=== PATIENT | female | born 1980 | race Caucasian/White ===

== ENCOUNTER 2020-01-04 07:46 | Emergency (ER) | payer OTHER, SELFPAY ==
--- NOTE | ~2020-01-04 | XR_ITS ---
EXAMINATION: XR chest 2V 01/04/2020 08:16 INDICATION: Chest pain, shortness of breath and tachycardia PROCEDURE: 2 view chest COMPARISON: 11/29/2013 FINDINGS: The lungs are clear. The cardiomediastinal silhouette is within normal limits. There are no pleural effusions. There is no pneumothorax suspected. IMPRESSION: 1: NO ACUTE CARDIOPULMONARY DISEASE. Reviewed, dictated and finalized at location A.
--- NOTE | 2020-01-04 07:49 | ECG_ITS ---
Measurements Intervals [place] Rate: 93 P: 39 CT: 133 QRS: 25 QRSD: 91 T: 38 QT: 339 QTc: 424 Interpretive Statements SINUS RHYTHM NORMAL ECG Electronically Signed On 01-04-2020 8:51:45 CDT by Erik Rosa D.O.
[2020-01-04] MEDS: ASPIRIN 81 MG CHEWABLE TABLET 324 MG PO (08:04)
[2020-01-04 08:24] LABS: Basophils Percent Auto 0.5 % (0.2-1.2); Eosinophils Absolute Auto 0.3 K/mm3 (0-0.3); Eosinophils Percent Auto 3.5 % (0-4.4); Hematocrit 40.9 % (37.0-47.0); Hemoglobin 13.5 g/dL (12.0-15.0); Immature Granulocyte Absolute 0.03 K/mm3 (0.00-0.031); Immature Granulocyte Percent A 0.3 % (0-0.5); Lymphocytes Absolute Auto 1.72 K/mm3 (0.9-3.2); Lymphocytes Percent Auto 19.6 % (18.3-44.2); Mean Corpuscular Hemoglobin 27.5 pg (26-34); Mean Corpuscular Volume 83.3 fl (80-100); Monocytes Absolute Auto 0.5 K/mm3 (0.1-0.6); Monocytes Percent Auto 6.1 % (2.6-8.5); Neutrophils Absolute Auto 6.2 K/mm3 (1.3-6.7); Platelet Count Result 318 k/mm3 (150-375); Red Blood Count 4.91 M/mm3 (4.2-5.4); Red Cell Distribution Width 13.8 % (11.5-14.5); White Blood Count 8.8 K/mm3 (4.5-10.0)
[2020-01-04 08:31] VITALS: BP 113/67; PULSE 94; RESP 18; O2SAT 96
[2020-01-04 08:35] LABS: Anion Gap 10 mmol/L (8-16); Blood Urea Nitrogen 10 mg/dL (7-17); Calcium 9.1 mg/dL (8.4-10.2); Carbon Dioxide 30 mmol/L (22-30); Chloride 99 mmol/L (98-107); Estimated CRCL calculation 157 ml/min; Estimated Glomerular Filt Rate > 60; Glucose 150 mg/dL (65-105); Potassium 3.9 mmol/L (3.4-5.0); Sodium 139 mmol/L (137-145)
[2020-01-04 08:39] LABS: D Dimer 0.29 ug/mL (<0.48)
[2020-01-04 08:41] LABS: Partial Thromboplastin Time 29.9 SECONDS (22.3-36.8); Prothrombin Time 13.3 Seconds (11.1-14.7)
[2020-01-04 08:46] LABS: Troponin I < 0.012 ng/mL (0.000-0.034)
[2020-01-04 09:25] VITALS: BP 102/66; PULSE 92; RESP 18; O2SAT 97
--- NOTE | 2020-01-04 09:40 | ED.CHESTPAIN ---
HPI - Chest Pain General Chief Complaint: Chest Pain Stated Complaint: Chest Pain x two weeks Time Seen by Provider: 01/04/20 07:52 Source: patient Mode of arrival: ambulatory Limitations: no limitations History of Present Illness HPI narrative: 39-year-old with a history of hypertension, diabetes here with complaints of palpitation on and off for approximately 1 month however last night she states that she had fluttering sensation in the mid chest associated with some pain and discomfort which also radiated to her left biceps. She also complains of chest pain with deep breathing. No history of cough or shortness of breath. She states that she has been working long hours. No history of COVID exposure. complaint: chest pain Onset (ago): week(s) (4) Timing of current episode: episodic Prior episodes: No Pain location: parasternal Pain radiation: left arm Severity: mild Quality: tightness and aching Risk Factors Coronary artery disease risk factors: diabetes and hypertension Related Data On Oral Contraceptives: No Home Medications Medication Instructions Recorded Confirmed clonazepam 01/04/20 hydrocodone-acetaminophen tablet 01/04/20 lisinopril 01/04/20 metformin mg 01/04/20 Allergies Allergy/AdvReac Type Severity Reaction Status Date / Time amoxicillin Allergy Intermediate Swelling Verified 01/04/20 07:53 clavulanic acid Allergy Intermediate Swelling Verified 01/04/20 07:53 Review of Systems Review of Systems: All systems reviewed & are unremarkable except as noted in HPI and below Constitutional: Constitutional: Reports no additional constitutional complaints Eyes: Eyes: Reports no additional eye complaints ENT: Reports system reviewed and no additional complaints, except as documented Cardiovascular: Cardiovascular: Reports no additional cardiovascular complaints Respiratory: Respiratory: Reports no additional respiratory complaints Musculoskeletal: Musculoskeletal: Reports no additional musculoskeletal complaints Integumentary/Breasts: Skin/Breast: Reports system reviewed and no additional complaints, except as docu Neurologic: Reports system reviewed and no additional complaints, except as documented Psychiatric: Psychiatric: Reports no additional psychiatric complaints PMFSH Social History Social History Gender identity (if verbalized by the patient): Female Exam Narrative: Exam Narrative: GENERAL: Well-appearing, obese, and in no acute distress. HEAD: Normocephalic, atraumatic. EYES: PERRLA and EOMI. ENT: Nares clear, no rhinorrhea or epistaxis. Mucous membranes moist. NECK: Supple. CHEST: Clear to auscultation. No respiratory distress. HEART: Regular rate and rhythm. No murmur heard. Normal peripheral pulses. ABDOMEN: Soft, nontender, nondistended, normal active bowel sounds. EXTREMITIES: Normal range of motion. No edema. SKIN: Warm, dry, no rash. NEURO: No focal deficits. Alert and oriented x3. PSYCH: Normal mood and affect. Course Course Emergency Course: Patient here in the ER had no chest pain or palpitation. I discussed her EKG and chest x-ray findings with the patient. Pain at this time is atypical advised her to follow-up with the primary doctor. Vital Signs Vital signs: Vital Signs Pulse Rate 94 01/04/20 08:31 Respiratory Rate 18 01/04/20 08:31 Blood Pressure 113/67 01/04/20 08:31 Pulse Oximetry 96 01/04/20 08:31 Pulse Rate 92 01/04/20 09:25 Respiratory Rate 18 01/04/20 09:25 Blood Pressure 102/66 01/04/20 09:25 Pulse Oximetry 97 01/04/20 09:25 MDM - Chest Pain Lab Data Result diagrams: 01/04/20 07:58 01/04/20 07:58 Labs: Lab Results 01/04/20 01/04/20 01/04/20 Range/Units 07:58 07:58 07:58 WBC 8.8 (4.5-10.0) K/mm3 RBC 4.91 (4.2-5.4) M/mm3 Hgb 13.5 (12.0-15.0) g/dL Hct 40.9 (37.0-47.0) % MCV 83.3 (80-100) fl M
[2020-01-04 09:56] VITALS: BP 106/70; PULSE 97; RESP 18; O2SAT 98
== END 2020-01-04 09:57 | disposition home or self-care (01) ==
PROVIDERS: Emergency Provider Family Medicine; PCP Emergency Medicine
DX: R00.2 Palpitations (principal); R07.89 Other chest pain; I10 Essential (primary) hypertension; E11.9 Type 2 diabetes mellitus without complications; Z79.84 Long term (current) use of oral hypoglycemic drugs
CPT/HCPCS: 36415; 71046; 80048; 84484; 85025; 85380; 85610; 85730; 93005; 99284; A9270

== ENCOUNTER 2020-06-07 23:51 | Emergency (ER) | payer OTHER, SELFPAY ==
--- NOTE | ~2020-06-07 | XR_ITS ---
EXAMINATION: XR chest 1V portable DATE: 06/08/2020 00:29 INDICATION: Chest pain. TECHNIQUE: A single frontal view of the chest was obtained. COMPARISON: Chest 2 views 01/04/2020 FINDINGS: Sensitivity is decreased by obesity. The chest demonstrates clear lungs without pneumonia, pleural effusion, or pneumothorax. The heart size is normal. IMPRESSION: 1. No acute cardiopulmonary disease. Reviewed, dictated and finalized at location A.
[2020-06-07 23:59] VITALS: PULSE 83
[2020-06-08] VITALS (11 sets, daily range): BP systolic 116–140; BP diastolic 60–88; PULSE 80–97; RESP 16; TEMP 36.6–37; O2SAT 96–100
--- NOTE | 2020-06-08 00:05 | ECG_ITS ---
Measurements Intervals [place] Rate: 94 P: 39 MD: 128 QRS: 25 QRSD: 86 T: 41 QT: 344 QTc: 431 Interpretive Statements SINUS RHYTHM MINIMAL Q WAVES- HIGH LATERAL LEADS BASELINE ARTIFACT- I, III, AVR, AVL BORDERLINE ECG Electronically Signed On 06-08-2020 7:11:36 CDT by Erik Rosa D.O.
[2020-06-08] MEDS: ASPIRIN 81 MG CHEWABLE TABLET 324 MG PO (00:25)
--- NOTE | 2020-06-08 00:26 | ED.GENADULT ---
HPI - General Adult General Chief complaint: Chest Pain Stated complaint: CP Time Seen by Provider: 06/07/20 23:56 History of Present Illness HPI narrative: Patient a 39-year-old female that presents the emergency department with chief complaint of chest pain. The patient reports that she started having a sharp pain in the left side of her chest that radiates up into her neck. Patient states that it is worse with inspiration and is improved with leaning forward. Patient states that the pain is a sharp type pain states that it is worsened with deep inspiration and also palpation in her chest. Patient reports she has history of hypertension Related Data Home Medications Medication Instructions Recorded Confirmed clonazepam 01/04/20 hydrocodone-acetaminophen tablet 01/04/20 lisinopril 01/04/20 metformin mg 01/04/20 Allergies Allergy/AdvReac Type Severity Reaction Status Date / Time amoxicillin Allergy Intermediate Swelling Verified 01/04/20 07:53 clavulanic acid Allergy Intermediate Swelling Verified 01/04/20 07:53 Review of Systems Review of Systems: Narrative: A 10 system review of systems was completed on the patient and is negative except for what is stated in the HPI. Nursing and ancillary documentation was reviewed. [facility] Social History Social History Gender identity (if verbalized by the patient): Female Comments Patient has past medical history significant for hypertension Social history the patient reports that she is a former smoker Exam Narrative: Exam Narrative: GENERAL: Well-appearing, well-nourished, and in no acute distress. HEAD: Normocephalic, atraumatic. EYES: PERRLA and EOMI. ENT: Nares clear, no rhinorrhea or epistaxis. Mucous membranes moist. NECK: Supple. CHEST: Clear to auscultation. No respiratory distress. Chest wall is tender to palpation and reproduces the pain HEART: Regular rate and rhythm. No murmur heard. Normal peripheral pulses. ABDOMEN: Soft, nontender, nondistended, normal active bowel sounds. EXTREMITIES: Normal range of motion. No edema. SKIN: Warm, dry, no rash. NEURO: No focal deficits. Alert and oriented x3. PSYCH: Normal mood and affect. Course Course Emergency Course: EKG is sinus rhythm rate of [address] elevation or ST depression Vital Signs Vital signs: Vital Signs Pulse Rate 83 06/07/20 23:59 Temperature 36.6 C 06/08/20 00:01 Pulse Rate 96 06/08/20 01:16 Respiratory Rate 16 06/08/20 00:01 Blood Pressure 120/86 06/08/20 01:15 Pulse Oximetry 97 06/08/20 01:16 Medical Decision Making Vital Signs Vital Signs: Vital Signs Pulse Rate 83 06/07/20 23:59 Temperature 36.6 C 06/08/20 00:01 Pulse Rate 96 06/08/20 01:16 Respiratory Rate 16 06/08/20 00:01 Blood Pressure 120/86 06/08/20 01:15 Pulse Oximetry 97 06/08/20 01:16 Lab Data Result diagrams: 06/08/20 00:24 06/08/20 00:24 Labs: Lab Results 06/08/20 06/08/20 06/08/20 Range/Units 00:23 00:24 00:24 WBC 10.5 H (4.5-10.0) K/mm3 RBC 4.74 (4.2-5.4) M/mm3 Hgb 12.9 (12.0-15.0) g/dL Hct 38.5 (37.0-47.0) % MCV 81.2 (80-100) fl MCH 27.2 (26-34) pg MCHC 33.5 (32-36) g/dl RDW 14.0 (11.5-14.5) % Plt Count 322 (150-375) k/mm3 MPV 9.1 (7.4-10.4) fl Immature Gran % (Auto) 0.4 (0-0.5) % Neut % (Auto) 61.8 (45.5-73.1) % Lymph % (Auto) 27.3 (18.3-44.2) % [place] % (Auto) 7.3 (2.6-8.5) % Eos % (Auto) 2.8 (0-4.4) % Baso % (Auto) 0.4 (0.2-1.2) % Lymph # (Auto) 2.87 (0.9-3.2) K/mm3 [place] # (Auto) 0.8 H (0.1-0.6) K/mm3 Eos # (Auto) 0.3 (0-0.3) K/mm3 Baso # (Auto) 0.0 (0.0-0.1) K/mm3 Abs Immat Gran (auto) 0.04 H (0.00-0.031) K/mm3 Absolute Neuts (auto) 6.5 (1.3-6.7) K/mm3 Absolute Nucleated RBC 0.0 (0.0-0.012) K/mm3 Nucleated RBC % 0.0 (0.0-0.2) % D-Dimer
[2020-06-08 00:39] LABS: Basophils Percent Auto 0.4 % (0.2-1.2); Eosinophils Absolute Auto 0.3 K/mm3 (0-0.3); Eosinophils Percent Auto 2.8 % (0-4.4); Hematocrit 38.5 % (37.0-47.0); Hemoglobin 12.9 g/dL (12.0-15.0); Immature Granulocyte Absolute 0.04 K/mm3 (0.00-0.031); Immature Granulocyte Percent A 0.4 % (0-0.5); Lymphocytes Absolute Auto 2.87 K/mm3 (0.9-3.2); Lymphocytes Percent Auto 27.3 % (18.3-44.2); Mean Corpuscular HGB Conc 33.5 g/dl (32-36); Mean Corpuscular Hemoglobin 27.2 pg (26-34); Mean Corpuscular Volume 81.2 fl (80-100); Mean Platelet Volume 9.1 fl (7.4-10.4); Monocytes Absolute Auto 0.8 K/mm3 (0.1-0.6); Monocytes Percent Auto 7.3 % (2.6-8.5); Neutrophils Absolute Auto 6.5 K/mm3 (1.3-6.7); Neutrophils Percent Auto 61.8 % (45.5-73.1); Platelet Count Result 322 k/mm3 (150-375); Red Blood Count 4.74 M/mm3 (4.2-5.4); White Blood Count 10.5 K/mm3 (4.5-10.0)
[2020-06-08 00:52] LABS: Alanine Aminotransferase 20 U/L (4-35); Albumin Level 4.3 g/dL (3.5-5.1); Alkaline Phosphatase 62 U/L (38-126); Anion Gap 6 mmol/L (8-16); Aspartate Amino Transferase 21 U/L (14-36); Bilirubin,Total 0.4 mg/dL (0.2-1.3); Blood Urea Nitrogen 14 mg/dL (7-17); Calcium 9.2 mg/dL (8.4-10.2); Carbon Dioxide 30 mmol/L (22-30); Chloride 100 mmol/L (98-107); Estimated CRCL calculation 188 ml/min; Estimated Glomerular Filt Rate > 60; Glucose 109 mg/dL (65-105); Potassium 4.1 mmol/L (3.4-5.0); Sodium 136 mmol/L (137-145)
[2020-06-08 01:05] LABS: NT Pro B Type Natriuretic Pept 34 PG/ML (5-100); Troponin I < 0.012 ng/mL (0.000-0.034)
[2020-06-08 01:59] LABS: D Dimer 0.32 ug/mL (<0.48)
[2020-06-08 02:07] LABS: Add Urine Microscopic? YES; Appearance Urine Cloudy (Clear); Bacteria Urine Trace /hpf; Bilirubin Urine Negative (Negative); Blood Urine Negative (Negative); Color Urine Yellow (Yellow); Glucose Urine UA 1+ mg/dL (Negative); Ketones Urine Negative (Negative); Leukocyte Esterase Ur Negative LEU/UL (Negative); Mucus Urine Moderate /lpf; Nitrate Urine Negative (Negative); Protein Urine 1+ mg/dL (Negative); RBC Urine 0-2 /hpf (0-2); Specific Grav Ur 1.026 (1.001-1.035); Squamous Epithelial Cell Urine Moderate /hpf (Few); Urobilinogen Urine Negative mg/dL (<2.0); WBC Urine 0-3 /hpf
== END 2020-06-08 02:18 | disposition home or self-care (01) ==
PROVIDERS: Emergency Provider Emergency Medicine; PCP Emergency Medicine
DX: R07.89 Other chest pain (principal); I10 Essential (primary) hypertension; Z87.891 Personal history of nicotine dependence; R94.31 Abnormal electrocardiogram [ECG] [EKG]
CPT/HCPCS: 36415; 71045; 80053; 81001; 83880; 84484; 85025; 85380; 93005; 99284; A9270

== ENCOUNTER 2020-10-22 01:52 | Day surgery (SDC) | payer OTHER, SELFPAY ==
[2020-10-06 14:45] VITALS: BMI 46.1
[2020-10-22 06:46] VITALS: BP 132/85; PULSE 83; RESP 18; TEMP 36.1; O2SAT 99
[2020-10-22] MEDS: LACTATED RINGERS 1,000 ML 150 ML IV CONT (06:52)
[2020-10-22 07:01] LABS: Glucose Point of Care 93 mg/dl (65-105)
--- NOTE | 2020-10-22 07:53 | PM.HPGS ---
History of Present Illness History of Present Illness Consent: Risks, benefits, and alternatives have been discussed and questions answered. Patient agrees to proceed with procedure. Chief complaint: Rectal bleeding, GERD Narrative: Lor Tabares is a 40 year old female with choking sensation (not longer using omeprazole) and also alternating constipation and diarrhea, never had scopes Review of Systems Constitutional: Constitutional: Denies headache(s) and Denies weakness Eyes: Eyes: Denies blurry vision ENT: Reports Normal hearing present, Denies headache(s) and Denies neck pain Cardiovascular: Cardiovascular: Denies chest pain and Denies dyspnea Respiratory: Respiratory: Denies dyspnea Gastrointestinal: Gastrointestinal: Reports no additional gastrointestinal complaints Genitourinary: Genitourinary: Denies dysuria Musculoskeletal: Musculoskeletal: Denies neck pain Integumentary/Breasts: Skin/Breast: Denies dry skin Neurologic: Reports Normal hearing present, Denies headache(s) and Denies weakness Psychiatric: Psychiatric: Denies anxiety Endocrine: Endocrine: Denies change in body appearance Hematologic/Lymphatic: Hematologic/Lymphatic: Denies easy bleeding Allergic/Immunologic: Allergic/Immunologic: Denies urticaria PMFSH Past Medical History Medical History (Updated 10/22/20 @ 07:54 by Jc Owens MD) Alternating constipation and diarrhea Diabetes mellitus GERD (gastroesophageal reflux disease) HTN (hypertension), benign IBS (irritable bowel syndrome) Social History Social History Smoking packs per day: 1 Smoking cigarettes per day: 20.0 Years smoked: 10 Smoking pack-years: 10.00 Smoking status: Former smoker Tobacco type: cigarettes Smoking end date: 03/26/16 Alcohol intake: current Substance use: never Substance use type: does not use Living arrangements: with family Gender identity (if verbalized by the patient): Female Spiritual care concerns: No Meds Home Medications and Allergies Home Medications Medication Instructions Recorded Confirmed Type clonazepam 1 mg PO BID PRN 10/06/20 10/06/20 History lisinopril 20 mg PO DAILY 10/06/20 10/06/20 History metformin 850 mg PO DAILY 10/06/20 10/06/20 History Allergies Allergy/AdvReac Type Severity Reaction Status Date / Time amoxicillin Allergy Intermediate Swelling Verified 10/22/20 06:45 clavulanic acid Allergy Intermediate Swelling Verified 10/22/20 06:45 Vital Signs Vital Signs - 24 hr 10/22/20 06:46 Temperature 97 F L Pulse Rate 83 Respiratory Rate 18 Blood Pressure 132/85 Pulse Oximetry 99 Exam Const: General: comfortable and no acute distress Nutritional Appearance: obese HENMT: General nose exam: Normal nares present Eyes: General: appearance normal, both eyes and all related structures Neck: Neck: no JVD Resp: Auscultation: clear to auscultation bilaterally Cardio: Rate: regular rate Rhythm: regular rhythm GI: Inspection: non-distended GI Palp: Yes Soft to palpation Skin: General skin exam: normal color Neuro: General: gait normal Speech: normal speech Extrem: General: normal to inspection Psych: Mental Status: mental status grossly normal Assessment and Plan Assessment and plan (1) IBS (irritable bowel syndrome): Code(s): K58.9 - Irritable bowel syndrome without diarrhea Status: Acute (2) GERD (gastroesophageal reflux disease): Code(s): K21.9 - Gastro-esophageal reflux disease without esophagitis Status: Inactive Assessment and Plan: egd with bx (3) Alternating constipation and diarrhea: Code(s): R19.8 - Other specified symptoms and signs involving the digestive system and abdomen Status: Acute Assessment and Plan: colonoscopy with random bx, possible ibs
--- NOTE | 2020-10-22 07:53 | WPDANESEPPF ---
Anes - Initial Pre Proc Eval Procedure: Operation Date: 10/22/20 08:00 Proposed Procedures p Esophagogastroduodenoscopy & Colonoscopy - Jc Owens MD Date/Time: 10/22/20 07:53 Surgeon: Jc Owens MD Pre Op Diagnosis: Rectal bleeding, GERD Patient Data Age: 40 Gender: F Height: 1.6 m Weight: 123.6 kg Last Vital Signs Temp 97 F L 10/22/20 06:46 Pulse 83 10/22/20 06:46 Resp 18 10/22/20 06:46 BP 132/85 10/22/20 06:46 Pulse Ox 99 10/22/20 06:46 Allergies Allergy/AdvReac Type Severity Reaction Status Date / Time amoxicillin Allergy Intermediate Swelling Verified 10/22/20 06:45 clavulanic acid Allergy Intermediate Swelling Verified 10/22/20 06:45 Home Medications Medication Instructions Recorded Confirmed Type clonazepam 1 mg PO BID PRN 10/06/20 10/06/20 History lisinopril 20 mg PO DAILY 10/06/20 10/06/20 History metformin 850 mg PO DAILY 10/06/20 10/06/20 History Laboratory Tests 10/22/20 06:52 POC Capillary Glucose 93 mg/dl mg/dl (65-105) Patient hx anesthesia problems: none Family hx anesthesia problems: none [facility] Past Medical History Medical History (Updated 10/22/20 @ 07:53 by Jc Owens MD) Diabetes mellitus GERD (gastroesophageal reflux disease) HTN (hypertension), benign IBS (irritable bowel syndrome) Social History Social History Smoking packs per day: 1 Smoking cigarettes per day: 20.0 Years smoked: 10 Smoking pack-years: 10.00 Smoking status: Former smoker Tobacco type: cigarettes Smoking end date: 03/26/16 Alcohol intake: current Substance use: never Substance use type: does not use Living arrangements: with family Gender identity (if verbalized by the patient): Female Spiritual care concerns: No Anes - Eval Final PreProcedure Day of Procedure 10/22/20 07:53 Patient weight: morbidly obese Heart: regular rate and rhythm Lungs: clear to auscultation Airway: Mallampati scale class III Last oral intake: >/= 8 hours ASA classification: IV Emergent: no Anesthetic plan: proceed Anesthesia type and monitoring: general GIVS and standard monitoring Informed Consent: The patient's anesthetic plan and its attendant risks and benefits were discussed with the patient/family/POA. Questions were solicited and answers provided to the satisfaction of the patient/family/POA.
[2020-10-22] MEDS: BENZOCAINE (*SP) 60 ML SPRAY CAN (HURRICAINE) 1 SPRAY MUCOUS MEM (08:00)
[2020-10-22 08:26] VITALS: BP 114/64; PULSE 89; RESP 16; O2SAT 100
[2020-10-22 08:36] VITALS: BP 111/68; PULSE 78; RESP 21; O2SAT 100
[2020-10-22 08:46] VITALS: BP 112/63; PULSE 75; RESP 19; O2SAT 100
== END 2020-10-22 08:54 | disposition home or self-care (01) ==
PROVIDERS: PCP Emergency Medicine; Visit Provider Internal Medicine Gastroenterology
PROC: 0DJ08ZZ Inspection of Upper Intestinal Tract, Via Natural or Artificial Opening Endoscopic (ICD-10-PCS; CPT 43235; principal; 2020-10-22 08:00)
DX: Z12.11 Encounter for screening for malignant neoplasm of colon (principal); R19.7 Diarrhea, unspecified; K59.00 Constipation, unspecified; K64.8 Other hemorrhoids; K29.50 Unspecified chronic gastritis without bleeding; K29.80 Duodenitis without bleeding; K21.9 Gastro-esophageal reflux disease without esophagitis; R13.10 Dysphagia, unspecified; I10 Essential (primary) hypertension; E11.9 Type 2 diabetes mellitus without complications; Z87.891 Personal history of nicotine dependence; E66.01 Morbid (severe) obesity due to excess calories; Z68.42 Body mass index [BMI] 45.0-49.9, adult
CPT/HCPCS: 45380; 43239; 82948; 88305; J2704; J7120

== ENCOUNTER 2022-01-07 07:37 | Outpatient (CLI) | payer OTHER, SELFPAY ==
--- NOTE | ~2022-01-07 | MM_ITS ---
EXAMINATION: MM screening [facility] BI w renan HISTORY: Screening TECHNIQUE: Craniocaudal and mediolateral oblique 3-D tomosynthesis images were obtained and synthetic 2-D images were generated. CAD analysis was submitted and interpreted. COMPARISON: No prior mammogram is available for comparison at this institution. BREAST PARENCHYMAL COMPOSITION: There are scattered areas of fibroglandular density. FINDINGS: There is a mass in the upper outer quadrant of the right breast, middle third. There is a s econd radiolucent mass in the lower outer quadrant posteriorly. There are no suspicious masses, calci fications or architectural distortion in the left breast to suggest malignancy. IMPRESSION: 1. Right breast masses as described above. 2. Additional mammographic views and possible breast ultrasound are recommended. BI-RADS Category 0: Incomplete: Needs additional imaging evaluation. Reviewed, dictated and finalized at location A. IMPRESSION: 1. Right breast masses as described above. 2. Additional mammographic views and possible breast ultrasound are recommended . BI-RADS Category 0: Incomplete: Needs additional imaging evaluation.
== END 2022-01-07 07:38 | disposition home or self-care (01) ==
PROVIDERS: PCP Emergency Medicine; Visit Provider Emergency Medicine
DX: Z12.31 Encounter for screening mammogram for malignant neoplasm of breast (principal); R92.8 Other abnormal and inconclusive findings on diagnostic imaging of breast
CPT/HCPCS: 77063; 77067

== ENCOUNTER 2022-01-27 12:58 | Outpatient (CLI) | payer OTHER, SELFPAY ==
--- NOTE | ~2022-01-27 | MMUS_ITS ---
EXAMINATION: MM diagnostic [facility] RT w renan, US breast RT complete HISTORY: Follow-up right breast mass TECHNIQUE: Additional 3-D tomosynthesis images of the right breast were performed and synthetic 2-D i mages were generated. CAD analysis was submitted and interpreted. High resolution complete right perri st ultrasound was performed. COMPARISON: 01/07/2022 BREAST PARENCHYMAL COMPOSITION: Breast composed of scattered areas of fibroglandular density FINDINGS: MAMMOGRAPHIC FINDINGS: There is a benign-appearing intramammary lymph node in the mid outer aspect of the right breast. No s uspicious masses, calcifications or architectural distortion to suggest malignancy. The small posteri or asymmetry in the right breast located posteriorly on prior screening mammogram is not visualized o n the current study. ULTRASOUND: Complete right breast US of all 4 quadrants of the breasts and retroareolar region was reviewed. Norm al heterogeneous echotexture without focal solid or cystic mass. IMPRESSION: 1. No evidence for malignancy in the right breast. 2. Routine yearly screening mammogram and regular clinical breast examination are recommended. BI-RADS Category 1: Negative Reviewed, dictated and finalized at location A. IMPRESSION: 1. No evidence for malignancy in the right breast. 2. Routine yearly screening mammogram and regular clinical breast examination a re recommended. BI-RADS Category 1: Negative
== END 2022-01-27 12:59 | disposition home or self-care (01) ==
LOC: ANHIMG 12:59
PROVIDERS: PCP Emergency Medicine; Visit Provider Emergency Medicine
DX: N63.10 Unspecified lump in the right breast, unspecified quadrant (principal)
CPT/HCPCS: 76641; 77061; 77065; G0279

== ENCOUNTER 2023-06-28 17:00 | Outpatient (CLI) | payer OTHER, SELFPAY ==
--- NOTE | ~2023-06-28 | MM_ITS ---
EXAMINATION: MM screening [facility] BI w renan HISTORY: Screening TECHNIQUE: Craniocaudal and mediolateral oblique 3-D tomosynthesis images were obtained and synthetic 2-D images were generated. CAD analysis was submitted and interpreted. COMPARISON: Comparison to multiple prior studies sequentially, with oldest reviewed study dated 12/24. BREAST PARENCHYMAL COMPOSITION: Not dense: There are scattered areas of fibroglandular density. FINDINGS: Stable benign-appearing right breast masses. There is no evidence of suspicious mass, calci fication, or architectural distortion to suggest malignancy in either breast. There has been no suspi cious interval change. IMPRESSION: 1. No mammographic evidence of malignancy. 2. Recommend routine screening mammography in one year. BI-RADS Category 1: Negative Reviewed, dictated and finalized at location A.
== END 2023-06-28 17:01 | disposition home or self-care (01) ==
PROVIDERS: PCP Emergency Medicine; Visit Provider Emergency Medicine
DX: Z12.31 Encounter for screening mammogram for malignant neoplasm of breast (principal)
CPT/HCPCS: 77063; 77067

== ENCOUNTER 2024-10-04 07:01 | Outpatient (CLI) | payer OTHER, SELFPAY ==
--- NOTE | ~2024-10-04 | MM_ITS ---
EXAMINATION: MM screening [facility] w [facility] HISTORY: Screening TECHNIQUE: Craniocaudal and mediolateral oblique 3-D tomosynthesis images were obtained and synthetic 2-D images were generated. CAD analysis was submitted and interpreted. COMPARISON: Comparison to multiple prior studies sequentially, with oldest reviewed study dated 12/24. BREAST PARENCHYMAL COMPOSITION: Not dense: There are scattered areas of fibroglandular density. FINDINGS: There is no evidence of suspicious mass, calcification, or architectural distortion to sugg est malignancy in either breast. There has been no suspicious interval change. IMPRESSION: 1. No mammographic evidence of malignancy. 2. Recommend routine screening mammography in one year. BI-RADS Category 1: Negative Reviewed, dictated and finalized at location []
--- OUTSIDE RECORDS SUMMARY | 2024-10-04 07:32 | XMS_ITS | Clinical Summary ---
Author Organization [facility] [employer] Address [address] [place] [address] Care Team Providers Care Furniture Assembler And Installer Name Role Phone Joe Finn MD Primary Care Provider [phone] Source Comments [facility] [employer],non-owned Affiliates and Associated Physician Practices is amultiple site organization consisting of ambulatory clinics and hospital sitesin [place], [place], [place] and [place]. This disclosure is being madepursuant to the Care Everywhere program and may not contain all information available regarding this patient. Last updated 17.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 Gender Identity Not on file Sexual Orientation Not on file Plan of Treatment Health Maintenance Due Date Last Done Comments LIPID TESTING 1981 MAMMOGRAM 1981 HIV SCREENING 1996 HEPATITIS C SCREENING 07/27/1999 DTAP/TDAP/TD VACCINES (1 - Tdap) 2000 HEPATITIS B VACCINE (1 of 3 - 19+ 3-dose series) 2000 HPV VACCINE (1 - 3-dose SCDM series) 2008 COVID-19 VACCINE ( - 2023-2 5 season) 2023 DEPRESSION SCREENING 03/26/2024 INFLUENZA VACCINE (#1) 2024 ZOSTER VACCINE (1 of 2) 08/01/2031 HIB VACCINE Aged Out No longer eligi ble based on patient's age to complete this topic MENINGOCOCCAL (Group B) VACC INE SHARED DECISION-MAKING Aged Out No longer eligibl e based on patient's age to complete this topic MENINGOCOCCAL GROUPS A/C/Y/W VACCINE Aged Out No longer eligible b ased on patient's age to complete this topic PNEUMOCOCCAL VACCINE Aged Out No long er eligible based on patient's age to complete this topic Insurance [facility] Care Teams Furniture Assembler And Installer Relationship Specialty Start Date End Date Joe Finn MD [address] [facility] [address] [place] [address] PCP - General 05/17/13
--- OUTSIDE RECORDS SUMMARY | 2024-10-04 07:32 | XMS_ITS | Continuity of Care Document ---
Author Organization [facility] Address [address] [place] [address] [place] [address] Phone Care Team Providers Care Manager Surgery Name Role Phone Joe Finn MD Unavailable Unavailable Allergies, Adverse Reactions, Alerts Substance Reaction Status Criticality No Known Allergies Active No Inform ation Medications Medication Instructions Dosage Effective Dates (start - stop) Status Comments hydrocodone 10 mg-acetaminophen 325 mg tablet take 1 by Oral route 4 times every day as needed for G89.4 1 - Active PRN for pain, avoid driving or operate machines phentermine 37.5 mg tablet take 1 tablet by oral route every day before breakfast 37.5 MG - Active Procedures Procedure Date OFFICE/OUTPATIENT VISIT, EST OFFICE/OUTPATIENT VISIT, EST OFFICE/OUTPATIENT VISIT, EST PREV VISIT, EST, AGE 40-64 OFFICE/OUTPATIENT VISIT, EST OFFICE/OUTPATIENT VISIT, EST OFFICE/OUTPATIENT VISIT, EST OFFICE/OUTPATIENT VISIT, EST OFFICE/OUTPATIENT VISIT, EST OFFICE/OUTPATIENT VISIT, EST OFFICE/OUTPATIENT VISIT, EST OFFICE/OUTPATIENT VISIT, EST OFFICE/OUTPATIENT VISIT, EST OFFICE/OUTPATIENT VISIT, EST OFFICE/OUTPATIENT VISIT, EST OFFICE/OUTPATIENT VISIT, EST OFFICE/OUTPATIENT VISIT, EST OFFICE/OUTPATIENT VISIT, EST OFFICE/OUTPATIENT VISIT, EST OFFICE/OUTPATIENT VISIT, EST OFFICE/OUTPATIENT VISIT, EST OFFICE/OUTPATIENT VISIT, EST OFFICE/OUTPATIENT VISIT, EST OFFICE/OUTPATIENT VISIT, EST OFFICE/OUTPATIENT VISIT, EST OFFICE/OUTPATIENT VISIT, EST OFFICE/OUTPATIENT VISIT, EST OFFICE/OUTPATIENT VISIT, EST OFFICE/OUTPATIENT VISIT, EST PREV VISIT, EST, AGE 40-64 OFFICE/OUTPATIENT VISIT, EST OFFICE/OUTPATIENT VISIT, EST OFFICE/OUTPATIENT VISIT, EST OFFICE/OUTPATIENT VISIT, EST OFFICE/OUTPATIENT VISIT, EST OFFICE/OUTPATIENT VISIT, EST OFFICE/OUTPATIENT VISIT, EST OFFICE/OUTPATIENT VISIT, EST OFFICE/OUTPATIENT VISIT, EST PREV VISIT, EST, AGE 18-39 OFFICE/OUTPATIENT VISIT, EST OFFICE/OUTPATIENT VISIT, EST OFFICE/OUTPATIENT VISIT, EST OFFICE/OUTPATIENT VISIT, EST OFFICE/OUTPATIENT VISIT, EST PREV VISIT, EST, AGE 18-39 OFFICE/OUTPATIENT VISIT, EST OFFICE/OUTPATIENT VISIT, EST OFFICE/OUTPATIENT VISIT, EST OFFICE/OUTPATIENT VISIT, EST OFFICE/OUTPATIENT VISIT, EST OFFICE/OUTPATIENT VISIT, EST PREV VISIT, EST, AGE 18-39 OFFICE/OUTPATIENT VISIT, EST OFFICE/OUTPATIENT VISIT, EST OFFICE/OUTPATIENT VISIT, EST OFFICE/OUTPATIENT VISIT, EST OFFICE/OUTPATIENT VISIT, EST PREV VISIT, EST, AGE 18-39 OFFICE/OUTPATIENT VISIT, EST OFFICE/OUTPATIENT VISIT, EST OFFICE/OUTPATIENT VISIT, EST OFFICE/OUTPATIENT VISIT, EST OFFICE/OUTPATIENT VISIT, EST OFFICE/OUTPATIENT VISIT, EST OFFICE/OUTPATIENT VISIT, EST PREV VISIT, EST, AGE 18-39 OFFICE/OUTPATIENT VISIT, EST OFFICE/OUTPATIENT VISIT, EST OFFICE/OUTPATIENT VISIT, EST OFFICE/OUTPATIENT VISIT, EST PREV VISIT, EST, AGE 18-39 OFFICE/OUTPATIENT VISIT, EST OFFICE/OUTPATIENT VISIT, EST OFFICE/OUTPATIENT VISIT, EST OFFICE/OUTPATIENT VISIT, EST OFFICE/OUTPATIENT VISIT, EST PREV VISIT, EST, AGE 18-39 OFFICE/OUTPATIENT VISIT, EST OFFICE/OUTPATIENT VISIT, EST OFFICE/OUTPATIENT VISIT, EST OFFICE/OUTPATIENT VISIT, EST OFFICE/OUTPATIENT VISIT, EST OFFICE/OUTPATIENT VISIT, EST OFFICE/OUTPATIENT VISIT, EST OFFICE/OUTPATIENT VISIT, EST -2013 PREV VISIT, EST, AGE 18-39 OFFICE/OUTPATIENT VISIT, EST -2012 OFFICE/OUTPATIENT VISIT, EST OFFICE/OUTPATIENT VISIT, EST OFFICE/OUTPATIENT VISIT, EST OFFICE/OUTPATIENT VISIT, EST OFFICE/OUTPATIENT VISIT, EST OFFICE/OUTPATIENT VISIT, EST OFFICE/OUTPATIENT VISIT, EST OFFICE/OUTPATIENT VISIT, EST OFFICE/OUTPATIENT VISIT, EST OFFICE/OUTPATIENT VISIT, EST OFFICE/OUTPATIENT VISIT, EST OFFICE/OUTPATIENT VISIT, EST PREV VISIT, EST, AGE 18-39 Advance Directives Directive Yes / No Effective Date File Name No Information Encounters Encounter Description Practice Location Reason(s) For Visit Diagnoses Date Provider Providers Copied on Encounter OFFICE/OUTPA TIENT VISIT, EST [facility], [address], [place], [place], [address], [place] tel:[phone] [facility] pain (chief complaint) weight gain1 (chief complaint) breast1 (chief complaint) Chronic pain syndromeAbnormal weight gainEncounter for oth screening for malignant neoplasm of breast 5 Aakash Jung [address], [place], [place], [address] , [place]. tel:[phone] OFFICE/OUTPA TIENT VISIT, [facility], [address], [place], [place], [address], [place] tel:[phone] [facility] pain (chief complaint) Chronic pain syndrome 5 Aakash Diaz. [address], [place], [place], [address] , [place]. [phone] OFFICE/OUTPA TIENT VISIT, EST [facility], [address], [place], [place], [address], [place] tel:[phone] [facility] pain (chief complaint) weight loss1 (chief complaint) anxiety1 (chief complaint) Chronic pain syndromeAbnormal weight lossGeneralized Anxiety Disorder 5 Aakash Jung [address], [place], [place], [address] , [place]. tel:[phone] PREV VISIT, EST, AGE 40-64 [facility], [address], [place], [place], [address], [place] tel:[phone] [facility] physical (chief complaint) Encounter for general adult medical examination without abnormal findings 5 Aakash Diaz. [address], [place], [place], [address] , [place]. tel:[phone] OFFICE/OUTPA TIENT VISIT, [facility], [address], [place], [place], [address], [place] tel:[phone] [facility] pain (chief complaint) weight gain1 (chief complaint) Chronic pain syndromeAbnormal weight gain 5 Aakash Jung [address], [place], [place], [address] , [place]. tel:[phone] OFFICE/OUTPA TIENT VISIT, [facility], [address], [place], [place], [address], [place] tel:[phone] [facility] pain (chief complaint) DM (chief complaint) folate (chief complaint) Chronic pain syndromeType 2 diabetes mellitus without complicationsAbnorm al weight lossMixed hyperlipidemiaFolat e deficiency 5 Aakash Jung [address], [place], [place], [address] , [place]. tel:[phone] OFFICE/OUTPA TIENT VISIT, [facility], [address] [place] [address], [place] tel:[phone] [facility] pain (chief complaint) weight gain1 (chief complaint) DM (chief complaint) Chronic pain syndromeAbnormal weight gainEncounter for oth screening for malignant neoplasm of breastType 2 diabetes mellitus without complications 4 Aakash Jung [address], [place], [place], [address] , [place]. tel:[phone] OFFICE/OUTPA TIENT VISIT, [facility], [address] [place] [address], [place] tel:[phone] [facility] back pain1 (chief complaint) weight loss1 (chief complaint) Chronic pain syndromeAbnormal weight loss 4 Aakash Jung [address], [place], [place], [address] , [place]. tel:[phone] OFFICE/OUTPA TIENT VISIT, [facility], [address], [place], [place], [address], [place] tel:[phone] [facility] pain (chief complaint) wight1 (chief complaint) Chronic pain syndromeAbnormal weight gain 3 0 4 Aakash Diaz. [address], [place], [place], [address] , [place]. tel:[phone] OFFICE/OUTPA TIENT VISIT, [facility], [address], [place], [place], [address], [place] [phone] [facility] weight loss1 (chief complaint) DM (chief complaint) pain (chief complaint) Abnormal weight lossChronic pain syndromeType 2 diabetes mellitus without complications 0 4 Aakash Diaz. [address], [place], [place], [address] , [place]. tel:[phone] OFFICE/OUTPA TIENT VISIT, [facility], [address], [place], [place], [address], [place] tel:[phone] [facility] pain (chief complaint) weight loss1 (chief complaint) Abnormal weight lossChronic pain syndrome Nov-0 4 Aakash Jung [address], [place], [place], [address] , [place]. tel:[phone] OFFICE/OUTPA TIENT VISIT, [facility], [address], [place], [place], [address], [place] tel:[phone] [facility] weight loss1 (chief complaint) pain (chief complaint) GI (chief complaint) GastroenteritisChro ayala pain syndromeAbnormal weight loss 4 Aakash Jung [address], [place], [place], [address] , [place]. tel:[phone] OFFICE/OUTPA TIENT VISIT, [facility], [address], [place], [place], [address], [place] tel:[phone] [facility] pain (chief complaint) DM (chief complaint) weight gain1 (chief complaint) Chronic pain syndromeType 2 diabetes mellitus without complicationsAbnorm al weight gain 0 4 Aakash Jung [address], [place], [place], [address] , [place]. tel:[phone] OFFICE/OUTPA TIENT VISIT, [facility], [address], [place], [place], [address], [place] tel:[phone] [facility] pain (chief complaint) DM (chief complaint) Chronic pain syndromeType 2 diabetes mellitus without complications Amish-0 4 Aakash Diaz. [address], [place], [place], [address] , [place]. tel:[phone] OFFICE/OUTPA TIENT VISIT, [facility], [address], [place], [place], [address], [place] tel:[phone] [facility] pain (chief complaint) DM (chief complaint) Chronic pain syndromeType 2 diabetes mellitus without complications July-0 4 Aakash Diaz. [address], [place], [place], [address] , [place]. tel:[phone] OFFICE/OUTPA TIENT VISIT, [facility], [address], [place], [place], [address], [place] tel:[phone] [facility] pain1 (chief complaint) Chronic pain syndromeEncntr screen mammogram for malignant neoplasm of breast Jun- 4 Aakash Diaz. [address], [place], [place], [address] , [place]. tel:[phone] OFFICE/OUTPA TIENT VISIT, [facility], [address], [place], [place], [address], [place] tel:[phone] [facility] pain1 (chief complaint) DM (chief complaint) Abnormal weight lossChronic pain syndrome May- 4 Aakash Diaz. [address], [place], [place], [address] , [place]. tel:[phone] OFFICE/OUTPA TIENT VISIT, [facility], [address], [place], [place], [address], [place] tel:[phone] [facility] pain (chief complaint) Chronic pain syndrome 0 4 Aakash Diaz. [address], [place], [place], [address] , [place]. tel:[phone] OFFICE/OUTPA TIENT VISIT, [facility], [address], [place], [place], [address], [place] tel:[phone] [facility] pain (chief complaint) weight gain1 (chief complaint) Abnormal weight gainChronic pain syndrome 4 Aakash Diaz. [address], [place], [place], [address] , [place]. [phone] OFFICE/OUTPA TIENT VISIT, [facility], [address], [place], [place], [address], [place] tel:[phone] [facility] weight1 (chief complaint) vaginal yeast1 (chief complaint) Abnormal weight lossAcute candidal vulvovaginitis 3 Aakash Diaz. [address], [place], [place], [address] , [place]. [phone] OFFICE/OUTPA TIENT VISIT, [facility], [address], [place], [place], [address], [place] tel:[phone] [facility] pain (chief complaint) HTN (chief complaint) mammo (chief complaint) Chronic pain syndromeEssential (primary) hypertensionLump in the right breast 3 Aakash Diaz. [address], [place], [place], [address] , [place]. [phone] OFFICE/OUTPA TIENT VISIT, [facility], [address], [place], [place], [address], [place] tel:[phone] [facility] pain (chief complaint) Chronic pain syndrome 3 Aakash Diaz. [address], [place], [place], [address] , [place]. [phone] OFFICE/OUTPA TIENT VISIT, [facility], [address], [place], [place], [address], [place] tel:[phone] [facility] pain (chief complaint) Chronic pain syndrome 3 Aakash Jung [address], [place], [place], [address] , [place]. tel:[phone] OFFICE/OUTPA TIENT VISIT, [facility], [address], [place], [place], [address], [place] tel:[phone] [facility] pain (chief complaint) HTN (chief complaint) weight (chief complaint) Chronic pain syndromeEssential (primary) hypertensionLocaliz ed swelling, mass and lump, headAbnormal weight loss 3 Aakash Jung [address], [place], [place], [address] , [place]. [phone] OFFICE/OUTPA TIENT VISIT, [facility], [address] [place] [address], [place] tel:[phone] [facility] pain (chief complaint) weight loss1 (chief complaint) Abnormal weight lossChronic pain syndrome Nov- 3 Aakash Jung [address], [place], [place], [address] , [place]. tel:[phone] OFFICE/OUTPA TIENT VISIT, [facility], [address] [place], [address], [place] tel:[phone] [facility] DM (chief complaint) phos1 (chief complaint) pain (chief complaint) HTN (chief complaint) depression 1 (chief complaint) Essential (primary) hypertensionType 2 diabetes mellitus without complicationsAbnorm al weight lossOther disorders of phosphorus metabolismChronic pain syndromeDepression 3 Aakash Jung [address], [place], [place], [address] , [place]. tel:[phone] OFFICE/OUTPA TIENT VISIT, [facility], [address] [place], [place], [address], [place] tel:[phone] [facility] DM (chief complaint) pain (chief complaint) HTN (chief complaint) Abnormal weight lossChronic pain syndromeType 2 diabetes mellitus without complicationsEssent ial (primary) hypertension 3 Aakash Diaz. [address], [place], [place], [address] , [place]. tel:[phone] OFFICE/OUTPA TIENT VISIT, EST [facility], [address], [place], [place], [address], [place] tel:[phone] [facility] pain (chief complaint) DM (chief complaint) Abnormal weight lossChronic pain syndrome Aug- 3 Aakash Diaz. [address], [place], [place], [address] , [place]. tel:[phone] OFFICE/OUTPA TIENT VISIT, EST [facility], [address], [place], [place], [address], [place] tel:[phone] [facility] pain (chief complaint) DM (chief complaint) Chronic pain syndromeAbnormal weight loss 3 Aakash Diaz. [address], [place], [place], [address] , [place]. tel:[phone] PREV VISIT, EST, AGE 40-64 [facility], [address], [place], [place], [address], [place] tel:[phone] [facility] physical (chief complaint) Encounter for general adult medical examination without abnormal findings 3 Aakash Diaz. [address], [place], [place], [address] , [place]. tel:[phone] OFFICE/OUTPA TIENT VISIT, EST [facility], [address], [place], [place], [address], [place] tel:[phone] [facility] pain (chief complaint) DM (chief complaint) phos1 (chief complaint) HLP (chief complaint) Chronic pain syndromeType 2 diabetes mellitus without complicationsMixed hyperlipidemiaOther disorders of phosphorus metabolismAbnormal weight loss 3 Aakash Diaz. [address], [place], [place], [address] , [place]. tel:[phone] OFFICE/OUTPA TIENT VISIT, [facility], [address], [place], [place], [address], [place] tel:[phone] [facility] DM (chief complaint) weight1 (chief complaint) pain (chief complaint) Chronic pain syndromeType 2 diabetes mellitus without complicationsAbnorm al weight gain 3 Aakash Diaz. [address], [place], [place], [address] , [place]. tel:[phone] OFFICE/OUTPA TIENT VISIT, [facility], [address], [place], [place], [address], [place] tel:[phone] [facility] pain (chief complaint) DM (chief complaint) weight (chief complaint) Type 2 diabetes mellitus without complicationsChroni c pain syndromeAbnormal weight gain 3 Aakash Diaz. [address], [place], [place], [address] , [place]. tel:[phone] OFFICE/OUTPA TIENT VISIT, [facility], [address], [place], [place], [address], [place] tel:[phone] [facility] cough1 (chief complaint) Acute bronchitis 2 Aakash Diaz. [address], [place], [place], [address] , [place]. tel:[phone] OFFICE/OUTPA TIENT VISIT, [facility], [address], [place], [place], [address], [place] tel:[phone] [facility] sick (chief complaint) Viral infection 2 Aakash Diaz. [address], [place], [place], [address] , [place]. tel:[phone] OFFICE/OUTPA TIENT VISIT, [facility], [address], [place], [place], [address], [place] tel:[phone] [facility] breast mass1 (chief complaint) HTN (chief complaint) DM (chief complaint) pain (chief complaint) anxiety1 (chief complaint) Lump in the right breastChronic pain syndromeGeneralized Anxiety DisorderEssential (primary) hypertensionType 2 diabetes mellitus without complications 2 Aakash Diaz. [address], [place], [place], [address] , [place]. tel:[phone] OFFICE/OUTPA TIENT VISIT, [facility], [address], [place], [place], [address], [place] tel:[phone] [facility] pain (chief complaint) anxiety1 (chief complaint) weight gain1 (chief complaint) Generalized Anxiety DisorderChronic pain syndromeAbnormal weight gainEncounter for oth screening for malignant neoplasm of breast 2 Aakash Diaz. [address], [place], [place], [address] , [place]. tel:[phone] OFFICE/OUTPA TIENT VISIT, [facility], [address], [place], [place], [address], [place] tel:[phone] [facility] pain (chief complaint) anxiety1 (chief complaint) metabolic1 (chief complaint) TG (chief complaint) Chronic pain syndromeType 2 diabetes mellitus without complicationsOther disorders of phosphorus metabolismMixed hyperlipidemiaProte inuriaGeneralized Anxiety Disorder 2 Aakash Diaz. [address], [place], [place], [address] , [place]. tel:[phone] OFFICE/OUTPA TIENT VISIT, EST [facility], [address], [place], [place], [address], [place] tel:[phone] [facility] pain (chief complaint) anxiety1 (chief complaint) GERD1 (chief complaint) HTN (chief complaint) Chronic pain syndromeGeneralized Anxiety DisorderEssential (primary) hypertensionGastrit is, unspecified, without bleeding 2 Aakash Diaz. [address], [place], [place], [address] , [place]. tel:[phone] PREV VISIT, EST, AGE 18-39 [facility], [address], [place], [place], [address], [place] tel:[phone] [facility] physical (chief complaint) Encounter for general adult medical examination without abnormal findings 1 Aakash Jung [address], [place], [place], [address] , [place]. tel:[phone] OFFICE/OUTPA TIENT VISIT, [facility], [address], [place], [place], [address], [place] tel:[phone] [facility] pain (chief complaint) anxiety1 (chief complaint) glucose1 (chief complaint) GERD1 (chief complaint) Chronic pain syndromeGERD w/o esophagitisGenerali zed Anxiety DisorderMetabolic syndrome 1 Aakash Jung [address], [place], [place], [address] , [place]. tel:[phone] OFFICE/OUTPA TIENT VISIT, [facility], [address], [place], [place], [address], [place] tel:[phone] [facility] pain (chief complaint) anxiety1 (chief complaint) GERD1 (chief complaint) HTN (chief complaint) Chronic pain syndromeGeneralized Anxiety DisorderMixed IBSGERD w/o esophagitisEssentia l (primary) hypertension 1 Aakash Jung [address], [place], [place], [address] , [place]. tel:[phone] OFFICE/OUTPA TIENT VISIT, [facility], [address], [place], [place], [address], [place] tel:[phone] [facility] bowel issue1 (chief complaint) GERD w/o esophagitisMixed IBSHemorrhoid 1 Aakash Jung [address], [place], [place], [address] , [place]. tel:[phone] OFFICE/OUTPA TIENT VISIT, [facility], [address], [place], [place], [address], [place] tel:[phone] [facility] sick1 (chief complaint) Acute bronchitis Fe 1 Aakash Jung [address], [place], [place], [address] , [place]. tel:[phone] OFFICE/OUTPA TIENT VISIT, EST [facility], [address], [place], [place], [address], [place] tel:[phone] [facility] pain (chief complaint) anxiety1 (chief complaint) Chronic pain syndromeGeneralized Anxiety Disorder Feb- 0 Aakash Diaz. [address], [place], [place], [address] , [place]. tel:[phone] PREV VISIT, EST, AGE 18-39 [facility], [address], [place], [place], [address], [place] tel:[phone] [facility] physical (chief complaint) Encounter for general adult medical examination without abnormal findings 0 Aakash Diaz. [address], [place], [place], [address] , [place]. [phone] OFFICE/OUTPA TIENT VISIT, EST [facility], [address], [place], [place], [address], [place] tel:[phone] [facility] abd pain (chief complaint) pneumonia1 (chief complaint) DM (chief complaint) HTN (chief complaint) back pain1 (chief complaint) anxiety1 (chief complaint) Abdominal painPneumoniaEssent ial (primary) hypertensionMetabol ic syndromeChronic pain syndromeGeneralized Anxiety Disorder 0 Aakash Diaz. [address], [place], [place], [address] , [place]. tel:[phone] OFFICE/OUTPA TIENT VISIT, EST [facility], [address], [place], [place], [address], [place] tel:[phone] [facility] pain (chief complaint) anxiety1 (chief complaint) PReDM (chief complaint) HTN (chief complaint) Essential (primary) hypertensionMetabol ic syndromeGeneralized Anxiety DisorderChronic pain syndrome 0 0 Aakash Diaz. [address], [place], [place], [address] , [place]. tel:[phone] OFFICE/OUTPA TIENT VISIT, [facility], [address], [place], [place], [address], [place] tel:[phone] [facility] cough1 (chief complaint) Acute bronchitis Jun-0 0 Aakash Diaz. [address], [place], [place], [address] , [place]. tel:[phone] OFFICE/OUTPA TIENT VISIT, [facility], [address], [place], [place], [address], [place] tel:[phone] [facility] pain (chief complaint) anxiety1 (chief complaint) sick (chief complaint) HTN (chief complaint) Generalized Anxiety DisorderChronic pain syndromeEssential (primary) hypertensionViral infection 0 Aakash Diaz. [address], [place], [place], [address] , [place]. tel:[phone] Referring Provider: Jer[address], [place], [place], [address]. tel:[phone] OFFICE/OUTPA TIENT VISIT, [facility], [address], [place], [place], [address], [place] tel:[phone] [facility] chronic pain1 (chief complaint) anxiety1 (chief complaint) HTN (chief complaint) ovarian cyst1 (chief complaint) Chronic pain syndromeGeneralized Anxiety DisorderMetabolic syndromeEssential (primary) hypertensionOvarian cyst of left side 9 Aakash Diaz. [address], [place], [place], [address] , [place]. tel:[phone] Referring Provider: Jer[address], [place], [place], [address]. tel:[phone] OFFICE/OUTPA TIENT VISIT, [facility], [address], [place], [place], [address], [place] tel:[phone] [facility] chronic pain1 (chief complaint) anxiety1 (chief complaint) Chronic pain syndromeGeneralized Anxiety Disorder 9 Aakash Diaz. [address], [place], [place], [address] , [place]. [phone] PREV VISIT, EST, AGE 18-39 [facility], [address], [place], [place], [address], [place] tel:[phone] [facility] PHysical (chief complaint) Encntr for general adult medical exam w/o abnormal findings 9 Aakash Diaz. [address], [place], [place], [address] , [place]. [phone] OFFICE/OUTPA TIENT VISIT, [facility], [address], [place], [place], [address], [place] tel:[phone] [facility] chronic pain1 (chief complaint) anxiety1 (chief complaint) Generalized Anxiety DisorderChronic pain syndrome 9 Aaaksh Diaz. [address], [place], [place], [address] , [place]. [phone] OFFICE/OUTPA TIENT VISIT, [facility], [address], [place], [place], [address], [place] tel:[phone] [facility] back pain1 (chief complaint) anxiety1 (chief complaint) HLP (chief complaint) folat1 (chief complaint) Body mass index (BMI) 45.0-49.9, adultHyperlipidemia Chronic pain syndromeFolate deficiencyGeneraliz ed Anxiety Disorder 9 Aakash Diaz. [address], [place], [place], [address] , [place]. [phone] OFFICE/OUTPA TIENT VISIT, [facility], [address], [place], [place], [address], [place] tel:[phone] [facility] chronic pain (chief complaint) anxiety1 (chief complaint) Chronic pain syndromeGeneralized Anxiety Disorder 9 Aakash Jung [address], [place], [place], [address] , [place]. tel:[phone] OFFICE/OUTPA TIENT VISIT, EST [facility], [address], [place], [place], [address], [place] tel:[phone] [facility] PreDM (chief complaint) HLP (chief complaint) Back pain 1 (chief complaint) anxiety1 (chief complaint) sick (chief complaint) Metabolic syndromeHyperlipide miaChronic pain syndromeGeneralized Anxiety DisorderEssential (primary) hypertensionAcute pharyngitis, unspecifiedFolate deficiencyBody mass index (BMI) 45.0-49.9, adult 8 Aakash Jung [address], [place], [place], [address] , [place]. tel:[phone] Referring Provider: Joe Finn, [address] [facility], [place], [place], [address]. tel:[phone] OFFICE/OUTPA TIENT VISIT, EST [facility], [address], [place], [place], [address], [place] tel:[phone] [facility] weight loss1 (chief complaint) HTN (chief complaint) back pain1 (chief complaint) anxiety1 (chief complaint) Body mass index (BMI) 45.0-49.9, adultAbnormal weight lossGeneralized Anxiety DisorderChronic pain syndromeEssential (primary) hypertension 8 Aakash Jung [address], [place], [place], [address] , [place]. [phone] PREV VISIT, EST, AGE 18-39 [facility], [address] [place] [address], [place] tel:[phone] [facility] PHysical (chief complaint) Encounter for general adult medical exam w abnormal findingsEssential (primary) hypertensionMetabol ic syndromeHyperlipide fede 8 Aakash Jung [address], [place], [place], [address] , [place]. tel:[phone] OFFICE/OUTPA TIENT VISIT, [facility], [address], [place], [place], [address], [place] tel:[phone] [facility] chest pain1 (chief complaint) chronic pain1 (chief complaint) anxiety1 (chief complaint) PreDM (chief complaint) HyperlipidemiaChron ic pain syndromeMetabolic syndromeChest painBody mass index (BMI) 50-59.9 , adultGeneralized Anxiety DisorderEssential (primary) hypertension 8 Aakash Diaz. [address], [place], [place], [address] , [place]. tel:[phone] Referring Provider: Jer[address], [place], [place], [address]. tel:[phone] OFFICE/OUTPA TIENT VISIT, [facility], [address], [place], [place], [address], [place] tel:[phone] [facility] fatty liver1 (chief complaint) back pain1 (chief complaint) anxiety1 (chief complaint) HTN (chief complaint) Essential (primary) hypertensionFatty liverChronic pain syndromeGeneralized anxiety disorder 8 Aakash Jung [address], [place], [place], [address] , [place]. tel:[phone] Referring Provider: Jeri [address], [place], [place], [address]. tel:[phone] OFFICE/OUTPA TIENT VISIT, [facility], [address], [place], [place], [address], [place] tel:[phone] [facility] back pain1 (chief complaint) anxiety1 (chief complaint) obesity1 (chief complaint) sick (chief complaint) Generalized Anxiety DisorderChronic pain syndromeBody mass index (BMI) 50-59.9 , adultAcute upper respiratory infection, unspecified 8 Aakash Jung [address], [place], [place], [address] , [place]. tel:[phone] Referring Provider: Jeri [address], [place], [place], [address]. tel:[phone] OFFICE/OUTPA TIENT VISIT, [facility], [address], [place], [place], [address], [place] tel:[phone] [facility] HTN (chief complaint) PreDM (chief complaint) HLP (chief complaint) back pain1 (chief complaint) anxiety1 (chief complaint) Essential (primary) hypertensionMetabol ic syndromeHyperlipide miaGeneralized Anxiety Disorder 7 Aakash Diaz. [address], [place], [place], [address] , [place]. [phone] OFFICE/OUTPA TIENT VISIT, [facility], [address], [place], [place], [address], [place] tel:[phone] [facility] back pain1 (chief complaint) anxiety1 (chief complaint) HTN (chief complaint) obeisty1 (chief complaint) Chronic pain syndromeGeneralized Anxiety DisorderEssential (primary) hypertensionBody mass index (BMI) 45.0-49.9, adult Nov- 7 Aakash Diaz. [address], [place], [place], [address] , [place]. tel:[phone] OFFICE/OUTPA TIENT VISIT, [facility], [address] [place], [address], [place] tel:[phone] [facility] HLP (chief complaint) back pain1 (chief complaint) anxiety1 (chief complaint) metabolic (chief complaint) Generalized Anxiety DisorderHyperlipide miaMetabolic syndromeChronic pain syndrome 7 Aakash Diaz. [address], [place], [place], [address] , [place]. tel:[phone] PREV VISIT, EST, AGE 18-39 [facility], [address], [place], [place], [address], [place] tel:[phone] [facility] PHysical (chief complaint) Encntr for general adult medical exam w/o abnormal findings 7 Aakash Jung [address], [place], [place], [address] , [place]. tel:[phone] Referring Provider: Jeri [address], [place], [place], [address]. tel:[phone] OFFICE/OUTPA TIENT VISIT, [facility], [address], [place], [place], [address], [place] tel:[phone] [facility] metabolic (chief complaint) back pain1 (chief complaint) anxiety1 (chief complaint) HLP (chief complaint) HyperlipidemiaMetab olic syndromeChronic pain syndromeGeneralized Anxiety Disorder 7 Aakash Jung [address], [place], [place], [address] , [place]. tel:[phone] Referring Provider: Jeri [address], [place], [place], [address]. tel:[phone] OFFICE/OUTPA TIENT VISIT, [facility], [address], [place], [place], [address], [place] tel:[phone] [facility] back pain1 (chief complaint) anxiety1 (chief complaint) HTN (chief complaint) HLP (chief complaint) preDM (chief complaint) Chronic pain syndromeHyperlipide miaEssential (primary) hypertensionMetabol ic syndrome 7 Aakash Jung [address], [place], [place], [address] , [place]. tel:[phone] OFFICE/OUTPA TIENT VISIT, [facility], [address], [place], [place], [address], [place] tel:[phone] [facility] chronic pain (chief complaint) anxiety1 (chief complaint) HTN1 (chief complaint) HLP (chief complaint) Chronic pain syndromeMetabolic syndromeEssential (primary) hypertensionHyperli pidemia 6 Aakash Jung [address], [place], [place], [address] , [place]. tel:[phone] Referring Provider: Jeri [address], [place], [place], [address]. tel:[phone] OFFICE/OUTPA TIENT VISIT, EST [facility], [address], [place], [place], [address], [place] tel:[phone] [facility] HTN (chief complaint) HLP (chief complaint) PreDM (chief complaint) chronic pain (chief complaint) anxiety1 (chief complaint) abd pain1 (chief complaint) Essential (primary) hypertensionHyperli pidemiaMetabolic syndromeChronic pain syndrome 6 Aakash Diaz. [address], [place], [place], [address] , [place]. tel:[phone] Referring Provider: Jeri [address], [place], [place], [address]. tel:[phone] PREV VISIT, EST, AGE 18-39 [facility], [address], [place], [place], [address], [place] tel:[phone] [facility] PHysical (chief complaint) Encntr for general adult medical exam w/o abnormal findingsMixed hyperlipidemiaMetab olic syndromeChronic pain syndromeEncounter for general adult medical exam w abnormal findings 6 Aakash Diaz. [address], [place], [place], [address] , [place]. tel:[phone] Referring Provider: Jeri [address], [place], [place], [address]. tel:[phone] OFFICE/OUTPA TIENT VISIT, EST [facility], [address], [place], [place], [address], [place] tel:[phone] [facility] HLP (chief complaint) PreDM (chief complaint) back pain (chief complaint) anxiety1 (chief complaint) Chronic pain syndromeGeneralized Anxiety DisorderOther specified metabolic disordersMixed hyperlipidemia 6 Aakash Diaz. [address], [place], [place], [address] , [place]. tel:[phone] Referring Provider: Jeri [address], [place], [place], [address]. tel:[phone] OFFICE/OUTPA TIENT VISIT, [facility], [address], [place], [place], [address], [place] tel:[phone] [facility] anxiety1 (chief complaint) lumbago (chief complaint) preDM (chief complaint) obesity (chief complaint) Metabolic syndromeOther spondylosis, lumbar regionGeneralized anxiety disorderBody mass index (BMI) 45.0-49.9, adult 5 Aakash Jung [address], [place], [place], [address] , [place]. [phone] Referring Provider: Jeri [address], [place], [place], [address]. tel:[phone] OFFICE/OUTPA TIENT VISIT, [facility], [address], [place], [place], [address], [place] tel:[phone] [facility] HLP (chief complaint) back pain (chief complaint) metabolic (chief complaint) Dietary surveillance and counselingBody Mass Index 40.0-44.9, adultDysmetabolic syndrome XGeneralized anxiety disorderOther and unspecified hyperlipidemia 5 Aakash Jung [address], [place], [place], [address] , [place]. [phone] Referring Provider: Jeri [address], [place], [place], [address]. tel:[phone] OFFICE/OUTPA TIENT VISIT, [facility], [address], [place], [place], [address], [place] tel:[phone] [facility] back pain (chief complaint) anxiety (chief complaint) HLP (chief complaint) Prediabeti c (chief complaint) Dietary surveillance and counselingHypertens ion, UnspecifiedLumbagoM etabolic SyndromeOther and unspecified hyperlipidemia 5 Aakash Jung [address], [place], [place], [address] , [place]. tel:[phone] Referring Provider: Jeri [address], [place], [place], [address]. tel:[phone] PREV VISIT, EST, AGE 18-39 [facility], [address], [place], [place], [address], [place] [phone] [facility] Physical (chief complaint) Dietary surveillance and counselingRoutine Medical ExamRoutine Medical Exam 5 Aakash Diaz. [address], [place], [place], [address] , [place]. [phone] Referring Provider: Jeri [address], [place], [place], [address]. tel:[phone] OFFICE/OUTPA TIENT VISIT, [facility], [address], [place], [place], [address], [place] tel:[phone] [facility] HTN (chief complaint) back pain (chief complaint) HLP (chief complaint) obesity (chief complaint) Dietary surveillance and counselingHypertens ion, UnspecifiedMetaboli c SyndromeOther and unspecified hyperlipidemiaBMI 45.0-49.9, ADULT 4 Aakash Diaz. [address], [place], [place], [address] , [place]. [phone] Referring Provider: Jeri [address], [place], [place], [address]. tel:[phone] OFFICE/OUTPA TIENT VISIT, EST [facility], [address], [place], [place], [address], [place] tel:[phone] [facility] back pain (chief complaint) HLP (chief complaint) preDm (chief complaint) HTN (chief complaint) Dietary surveillance and counselingLumbagoOt her and unspecified hyperlipidemiaMetab olic SyndromeHypertensio n, Unspecified 4 Aakash Diaz. [address], [place], [place], [address] , [place]. [phone] Referring Provider: Joe Finn, [address], [place], [place], [address]. tel:[phone] OFFICE/OUTPA TIENT VISIT, [facility], [address], [place], [place], [address], [place] [phone] [facility] back pain (chief complaint) sleep apnea (chief complaint) HLP (chief complaint) Other and unspecified hyperlipidemiaDieta ry surveillance and counselingLumbagoOb esity, MorbidSleep Apnea 4 Aakash Diaz. [address], [place], [place], [address] , [place]. [phone] Referring Provider: Jeri [address], [place], [place], [address]. tel:[phone] OFFICE/OUTPA TIENT VISIT, [facility], [address], [place], [place], [address], [place] tel:[phone] [facility] obesity (chief complaint) back pain (chief complaint) HLP (chief complaint) HTN (chief complaint) Dietary surveillance and counselingHypertens ion, UnspecifiedOther and unspecified hyperlipidemiaLumba goObesity, Morbid 4 Aakash Diaz. [address], [place], [place], [address] , [place]. [phone] Referring Provider: Jeri [address], [place], [place], [address]. tel:[phone] OFFICE/OUTPA TIENT VISIT, [facility], [address], [place], [place], [address], [place] [phone] [facility] back pain (chief complaint) Obesity (chief complaint) Fatigue (chief complaint) carpal tunnel (chief complaint) Dietary surveillance and counselingFatigue / MalaiseSleep ApneaLumbagoCarpal Tunnel Syndrome 4 Aakash Jung [address], [place], [place], [address] , [place]. [phone] Referring Provider: Joe Finn, [address], [place], [place], [address]. tel:[phone] OFFICE/OUTPA TIENT VISIT, [facility], [address], [place], [place], [address], [place] [phone] [facility] back pain (chief complaint) metabolic (chief complaint) HTN (chief complaint) HLP (chief complaint) anxiety (chief complaint) Dietary surveillance and counselingLumbagoHy pertension, UnspecifiedMetaboli c SyndromeOther and unspecified hyperlipidemia Jun- 4 Aakash Diaz. [address], [place], [place], [address] , [place]. tel:[phone] Referring Provider: Jeri [address], [place], [place], [address]. tel:[phone] OFFICE/OUTPA TIENT VISIT, [facility], [address], [place], [place], [address], [place] tel:[phone] [facility] back pain (chief complaint) HLP (chief complaint) anxiety (chief complaint) Dietary surveillance and counselingLumbagoOt her and unspecified hyperlipidemiaGener alized anxiety disorder May- 4 Aakash Diaz. [address], [place], [place], [address] , [place]. tel:[phone] Referring Provider: Jeri [address], [place], [place], [address]. tel:[phone] OFFICE/OUTPA TIENT VISIT, [facility], [address], [place], [place], [address], [place] tel:[phone] [facility] back pain (chief complaint) HTN (chief complaint) HLP (chief complaint) Dietary surveillance and counselingLumbagoUn specified vitamin d deficiencyOther and unspecified hyperlipidemiaMetab olic Syndrome Apr- 4 Aakash Diaz. [address], [place], [place], [address] , [place]. tel:[phone] Referring Provider: Jeri [address], [place], [place], [address]. tel:[phone] PREV VISIT, EST, AGE 18-39 [facility], [address], [place], [place], [address], [place] tel:[phone] [facility] Physical (chief complaint) Dietary surveillance and counselingRoutine Medical ExamRoutine Medical Exam 4 Aakash Diaz. [address], [place], [place], [address] , [place]. tel:[phone] Referring Provider: Jeri [address], [place], [place], [address]. tel:[phone] OFFICE/OUTPA TIENT VISIT, [facility], [address], [place], [place], [address], [place] tel:[phone] [facility] back pain (chief complaint) anxiety (chief complaint) Dietary surveillance and counselingLumbagoGe neralized anxiety disorder 3 Aakash Diaz. [address], [place], [place], [address] , [place]. tel:[phone] Referring Provider: Jeri [address], [place], [place], [address]. tel:[phone] OFFICE/OUTPA TIENT VISIT, [facility], [address], [place], [place], [address], [place] tel:[phone] [facility] HTN (chief complaint) PreDM (chief complaint) back pain (chief complaint) HLP (chief complaint) Dietary surveillance and counselingLumbagoMe tabolic SyndromeHypertensio n, UnspecifiedOther and unspecified hyperlipidemia 3 Aakash Diaz. [address], [place], [place], [address] , [place]. tel:[phone] Referring Provider: Jeri [address], [place], [place], [address]. tel:[phone] OFFICE/OUTPA TIENT VISIT, [facility], [address], [place], [place], [address], [place] tel:[phone] [facility] back pain (chief complaint) Dietary surveillance and counselingLumbagoHy pertension, Unspecified 3 Aakash Diaz. [address], [place], [place], [address] , [place]. [phone] Referring Provider: Joe Finn, [address], [place], [place], [address]. tel:[phone] OFFICE/OUTPA TIENT VISIT, [facility], [address], [place], [place], [address], [place] [phone] [facility] back pain (chief complaint) Dietary surveillance and counselingLumbago 3 Aakash Diaz. [address], [place], [place], [address] , [place]. [phone] Referring Provider: Jeri [address], [place], [place], [address]. tel:[phone] OFFICE/OUTPA TIENT VISIT, [facility], [address], [place], [place], [address], [place] tel:[phone] [facility] fatigue (chief complaint) HTN (chief complaint) lumbago (chief complaint) LumbagoHypertension , UnspecifiedFatigue / Malaise 3 Aakash Diaz. [address], [place], [place], [address] , [place]. tel:[phone] Referring Provider: Jeri [address], [place], [place], [address]. tel:[phone] OFFICE/OUTPA TIENT VISIT, [facility], [address], [place], [place], [address], [place] tel:[phone] [facility] not feeling right (chief complaint) Dietary surveillance and counselingDiabetes Mellitus, Adult Onset, UncontrolledDizzine ss 3 Aakash Diaz. [address], [place], [place], [address] , [place]. tel:[phone] Referring Provider: Jeri [address], [place], [place], [address]. tel:[phone] OFFICE/OUTPA TIENT VISIT, [facility], [address], [place], [place], [address], [place] tel:[phone] [facility] back pain (chief complaint) Obesity (chief complaint) HTN (chief complaint) Dietary surveillance and counselingOther and unspecified hyperlipidemiaMetab olic SyndromeLumbagoHype rtension, Unspecified 3 Aakash Diaz. [address], [place], [place], [address] , [place]. tel: [phone] Referring Provider: Jeri [address], [place], [place], [address]. tel:[phone] OFFICE/OUTPA TIENT VISIT, [facility], [address], [place], [place], [address], [place] tel:[phone] [facility] back pain (chief complaint) HTN (chief complaint) HLP (chief complaint) Dietary surveillance and counselingLumbagoHy pertension, UnspecifiedOther and unspecified hyperlipidemia 3 Aakash Diaz. [address], [place], [place], [address] , [place]. tel: [phone] Referring Provider: Jeri [address], [place], [place], [address]. tel:[phone] OFFICE/OUTPA TIENT VISIT, [facility], [address], [place], [place], [address], [place] tel:[phone] [facility] HTN (chief complaint) HLP (chief complaint) back pain (chief complaint) Dietary surveillance and counselingLumbagoHy pertension, UnspecifiedOther and unspecified hyperlipidemia 3 Aakash Diaz. [address], [place], [place], [address] , [place]. tel: [phone] Referring Provider: Jeri [address], [place], [place], [address]. tel:[phone] OFFICE/OUTPA TIENT VISIT, [facility], [address], [place], [place], [address], [place] tel:[phone] [facility] back pain (chief complaint) anxiety (chief complaint) HTN (chief complaint) Dietary surveillance and counselingOther and unspecified hyperlipidemiaHyper tension, UnspecifiedLumbago July- 0201 3 Aakash Diaz. [address], [place], [place], [address] , [place]. [phone] Referring Provider: Joe Finn, [address], [place], [place], [address]. tel:[phone] OFFICE/OUTPA TIENT VISIT, [facility], [address], [place], [place], [address], [place] [phone] [facility] back pain (chief complaint) HLP (chief complaint) Dietary surveillance and counselingLumbagoOt her and unspecified hyperlipidemiaHyper tension, Unspecified Jun- 3 Aakash Diaz. [address], [place], [place], [address] , [place]. [phone] Referring Provider: Jeri [address], [place], [place], [address]. tel:[phone] OFFICE/OUTPA TIENT VISIT, [facility], [address], [place], [place], [address], [place] tel:[phone] [facility] carpal tunnel (chief complaint) back pain (chief complaint) Vitami D (chief complaint) Dietary surveillance and counselingLumbagoCa rpal Tunnel SyndromeUnspecified vitamin d deficiency May- 3 Aakash Diaz. [address], [place], [place], [address] , [place]. tel:[phone] Referring Provider: Jeri [address], [place], [place], [address]. tel:[phone] OFFICE/OUTPA TIENT VISIT, [facility], [address], [place], [place], [address], tel:[phone] [facility] back pain (chief complaint) anxiety (chief complaint) Dietary surveillance and counselingLumbagoOt her and unspecified hyperlipidemiaGener alized anxiety disorder 3 Aakash Diaz. [address], [place], [place], [address] , . tel:[phone] Referring Provider: Jeri [address], [place], [place], [address]. tel:[phone] PREV VISIT, EST, AGE 18-39 [facility], [address], [place], [place], [address], tel:[phone] [facility] Physical (chief complaint) Dietary surveillance and counselingRoutine Medical ExamRoutine Medical Exam 3 Aakash Diaz. [address], [place], [place], [address] , . tel:[phone] Referring Provider: Jeri [address], [place], [place], [address]. tel:[phone] Family History Family Member Type Diagnosis Age At Onset Mother Problem (finding) Diabetes mellitus Father Problem (finding) Unknown Disease Payers Payer name Insurance type Covered democrat ID Dank awan(s) [facility] [id number] Social History Type Description Quantity Date Captured Comments Alcohol Use Details No Caffeine Use Details Unknown Tobacco Use Status Heavy cigarette smok er (20-39 cigs/day) Smoking Status Heavy tobacco smoker Sex Female Vital Signs Date / Time: Height Weight BMI Pulse Rate Blood Pressure Temperature Respiratory Rate Body Surface Area Head Circumference BMI percentile Pulse Ox Inhaled Ox 9:58 AM 63.00 in 263.20 lbs 46.6 2 kg/m eter (2) 82 /min 130/72 mm[Hg] 98.1 F 16 /min Chief Complaint And Reason For Visit From encounter dated '09/15/2024 09:55'. pain (chief complaint). Description: Pt has low back pain due to DDD. Pt denies any worsening pain ,Pt denies any loss of bladder control. Pt failed NSAID Pt takes norco PRN for pain and doing ok Pt denies any saddle area paresthesia. Pt denies any sciatica or any neuropathy symptoms. weight gain1 (chief complaint). Description: pt has been gaining weight again pt had not had phentermine for 4 weeks. Pt is interested in GLP-1 breast1 (chief complaint). Description: Pt denies any breast issue . Pt needs mammo Plan Of Treatment Date Type Action Status Goal Lipid panel. Due on due Goal Tdap. Due on due Goal Influenza vaccine. Due on due Goal Depression screening. Due on due Goal Td vaccine. Due on due Goal Pap/HPV testing. Due on due Goal Pap/HPV testing. Due on due Goal Lipid panel. Due on due Goal Tdap. Due on due Goal Influenza vaccine. Due on due Goal Depression screening. Due on due Goal Td vaccine. Due on due Goal Pap/HPV testing. Due on due Goal Lipid panel. Due on due Goal Tdap. Due on due Goal Influenza vaccine. Due on due Goal Depression screening. Due on due Goal Td vaccine. Due on due Goal Td vaccine. Due on due Goal Depression screening. Due on due Goal Pap/HPV testing. Due on due Goal Lipid panel. Due on due Goal Tdap. Due on due Goal Influenza vaccine. Due on due Goal Td vaccine. Due on due Goal Depression screening. Due on due Goal Influenza vaccine. Due on due Goal Tdap. Due on due Goal Lipid panel. Due on due Goal Pap/HPV testing. Due on due Goal Lipid panel. Due on due Goal Pap/HPV testing. Due on due Goal Tdap. Due on due Goal Influenza vaccine. Due on due Goal Td vaccine. Due on due Goal Depression screening. Due on due Goal Depression screening. Due on due Goal Lipid panel. Due on due Goal Pap/HPV testing. Due on due Goal Tdap. Due on due Goal Influenza vaccine. Due on due Goal Td vaccine. Due on due Goal Td vaccine. Due on due Goal Depression screening. Due on due Goal Lipid panel. Due on due Goal Pap/HPV testing. Due on due Goal Tdap. Due on due Goal Influenza vaccine. Due on No due Goal Influenza vaccine. Due on Oc due Goal Tdap. Due on due Goal Pap/HPV testing. Due on due Goal Lipid panel. Due on due Goal Depression screening. Due on due Goal Td vaccine. Due on due Goal Influenza vaccine. Due on Oc due Goal Tdap. Due on due Goal Pap/HPV testing. Due on due Goal Lipid panel. Due on due Goal Depression screening. Due on due Goal Td vaccine. Due on due Goal Influenza vaccine. Due on due Goal Tdap. Due on due Goal Pap/HPV testing. Due on due Goal Lipid panel. Due on due Goal Depression screening. Due on due Goal Td vaccine. Due on due Goal Influenza vaccine. Due on due Goal Tdap. Due on due Goal Pap/HPV testing. Due on due Goal Lipid panel. Due on due Goal Depression screening. Due on due Goal Td vaccine. Due on due Goal Influenza vaccine. Due on due Goal Tdap. Due on due Goal Pap/HPV testing. Due on due Goal Lipid panel. Due on due Goal Depression screening. Due on due Goal Td vaccine. Due on due Goal Td vaccine. Due on due Goal Depression screening. Due on due Goal Influenza vaccine. Due on due Goal Tdap. Due on due Goal Pap/HPV testing. Due on due Goal Lipid panel. Due on due Goal Lipid panel. Due on due Goal Pap/HPV testing. Due on due Goal Tdap. Due on due Goal Influenza vaccine. Due on due Goal Td vaccine. Due on due Goal Depression screening. Due on due Goal Depression screening. Due on due Goal Lipid panel. Due on due Goal Pap/HPV testing. Due on due Goal Tdap. Due on due Goal Influenza vaccine. Due on due Goal Td vaccine. Due on due Goal Influenza vaccine. Due on due Goal Tdap. Due on due Goal Pap/HPV testing. Due on due Goal Lipid panel. Due on due Goal Depression screening. Due on due Goal Td vaccine. Due on due Goal Td vaccine. Due on due Goal Influenza vaccine. Due on due Goal Tdap. Due on due Goal Pap/HPV testing. Due on due Goal Lipid panel. Due on due Goal Depression screening. Due on due Goal Depression screening. Due on due Goal Td vaccine. Due on due Goal Influenza vaccine. Due on due Goal Tdap. Due on due Goal Pap/HPV testing. Due on due Goal Lipid panel. Due on due Goal Lipid panel. Due on due Goal Pap/HPV testing. Due on due Goal Tdap. Due on due Goal Influenza vaccine. Due on due Goal Depression screening. Due on due Goal Td vaccine. Due on due Goal Td vaccine. Due on due Goal Depression screening. Due on due Goal Lipid panel. Due on due Goal Pap/HPV testing. Due on due Goal Tdap. Due on due Goal Influenza vaccine. Due on due Goal Td vaccine. Due on due Goal Depression screening. Due on due Goal Lipid panel. Due on due Goal Pap/HPV testing. Due on due Goal Tdap. Due on due Goal Influenza vaccine. Due on due Goal Influenza vaccine. Due on Oc due Goal Tdap. Due on due Goal Pap/HPV testing. Due on due Goal Lipid panel. Due on due Goal Depression screening. Due on due Goal Td vaccine. Due on due Goal Td vaccine. Due on due Goal Influenza vaccine. Due on Oc due Goal Tdap. Due on due Goal Pap/HPV testing. Due on due Goal Lipid panel. Due on due Goal Depression screening. Due on due Goal Depression screening. Due on due Goal Td vaccine. Due on due Goal Influenza vaccine. Due on Se due Goal Tdap. Due on due Goal Pap/HPV testing. Due on due Goal Lipid panel. Due on due Goal Lipid panel. Due on due Goal Pap/HPV testing. Due on due Goal Tdap. Due on due Goal Influenza vaccine. Due on due Goal Depression screening. Due on due Goal Td vaccine. Due on due Goal Td vaccine. Due on due Goal Depression screening. Due on due Goal Lipid panel. Due on due Goal Pap/HPV testing. Due on due Goal Tdap. Due on due Goal Influenza vaccine. Due on due Goal Td vaccine. Due on due Goal Depression screening. Due on due Goal Lipid panel. Due on due Goal Pap/HPV testing. Due on due Goal Tdap. Due on due Goal Influenza vaccine. Due on due Goal Influenza vaccine. Due on due Goal Tdap. Due on due Goal Pap/HPV testing. Due on due Goal Lipid panel. Due on due Goal Depression screening. Due on due Goal Td vaccine. Due on due Goal Depression screening. Due on due Goal Lipid panel. Due on due Goal Pap/HPV testing. Due on due Goal Tdap. Due on due Goal Influenza vaccine. Due on due Goal Td vaccine. Due on due Goal Pap/HPV testing. Due on due Goal Tdap. Due on due Goal Influenza vaccine. Due on due Goal Td vaccine. Due on due Goal Depression screening. Due on due Goal Lipid panel. Due on due Goal Lipid panel. Due on due Goal Depression screening. Due on due Goal Pap/HPV testing. Due on due Goal Tdap. Due on due Goal Influenza vaccine. Due on due Goal Td vaccine. Due on due Goal Influenza vaccine. Due on due Goal Tdap. Due on due Goal Pap/HPV testing. Due on due Goal Depression screening. Due on due Goal Lipid panel. Due on due Goal Td vaccine. Due on due Goal Td vaccine. Due on due Goal Influenza vaccine. Due on Oc due Goal Tdap. Due on due Goal Pap/HPV testing. Due on due Goal Depression screening. Due on due Goal Lipid panel. Due on due Goal Lipid panel. Due on due Goal Depression screening. Due on due Goal Td vaccine. Due on due Goal Influenza vaccine. Due on Oc due Goal Tdap. Due on due Goal Pap/HPV testing. Due on due Goal Lipid panel. Due on due Goal Depression screening. Due on due Goal Td vaccine. Due on due Goal Influenza vaccine. Due on Oc due Goal Tdap. Due on due Goal Pap/HPV testing. Due on due Goal Pap/HPV testing. Due on due Goal Tdap. Due on due Goal Influenza vaccine. Due on due Goal Td vaccine. Due on due Goal Depression screening. Due on due Goal Lipid panel. Due on due Goal Td vaccine. Due on due Goal Depression screening. Due on due Goal Pap/HPV testing. Due on due Goal Tdap. Due on due Goal Influenza vaccine. Due on due Goal Influenza vaccine. Due on Ma due Goal Tdap. Due on due Goal Pap/HPV testing. Due on due Goal Td vaccine. Due on due Goal Depression screening. Due on due Goal Pap/HPV testing. Due on due Goal Depression screening. Due on due Goal Td vaccine. Due on due Goal Influenza vaccine. Due on due Goal Tdap. Due on due Goal Tdap. Due on due Goal Influenza vaccine. Due on due Goal Td vaccine. Due on due Goal Pap/HPV testing. Due on due Goal Depression screening. Due on due Goal Depression screening. Due on due Goal Tdap. Due on due Goal Influenza vaccine. Due on due Goal Td vaccine. Due on due Goal Pap/HPV testing. Due on due Goal Depression screening. Due on due Goal Td vaccine. Due on due Goal Influenza vaccine. Due on due Goal Tdap. Due on due Goal Pap/HPV testing. Due on due Goal Pap/HPV testing. Due on due Goal Tdap. Due on due Goal Influenza vaccine. Due on due Goal Td vaccine. Due on due Goal Depression screening. Due on due Goal Depression screening. Due on due Goal Td vaccine. Due on due Goal Influenza vaccine. Due on due Goal Tdap. Due on due Goal Pap/HPV testing. Due on due Goal Pap/HPV testing. Due on due Goal Tdap. Due on due Goal Influenza vaccine. Due on due Goal Depression screening. Due on due Goal Td vaccine. Due on due Goal Td vaccine. Due on due Goal Depression screening. Due on due Goal Influenza vaccine. Due on due Goal Tdap. Due on due Goal Pap/HPV testing. Due on due Goal Td vaccine. Due on due Goal Depression screening. Due on due Goal Influenza vaccine. Due on due Goal Tdap. Due on due Goal Pap/HPV testing. Due on due Goal Td vaccine. Due on due Goal Depression screening. Due on due Goal Influenza vaccine. Due on due Goal Tdap. Due on due Goal Pap/HPV testing. Due on due Goal Td vaccine. Due on due Goal Depression screening. Due on due Goal Influenza vaccine. Due on due Goal Tdap. Due on due Goal Pap/HPV testing. Due on due Goal Tobacco cessation counseling completed Goal Influenza vaccine. Due on due Goal Depression screening. Due on due Goal Td vaccine. Due on due Goal Pap/HPV testing. Due on due Goal Tdap. Due on due Goal Tobacco cessation counseling completed Goal Special diet education compl eted Goal Tdap. Due on due Goal Pap/HPV testing. Due on due Goal Td vaccine. Due on 19 due Goal Depression screening. Due on due Goal Influenza vaccine. Due on due Goal Special diet education compl eted Goal Influenza vaccine. Due on due Goal Depression screening. Due on due Goal Td vaccine. Due on 19 due Goal Pap/HPV testing. Due on due Goal Tdap. Due on due Goal Special diet education compl eted Goal Tdap. Due on due Goal Pap/HPV testing. Due on due Goal Td vaccine. Due on due Goal Depression screening. Due on due Goal Influenza vaccine. Due on due Goal Special diet education compl eted Goal Tdap. Due on due Goal Pap/HPV testing. Due on due Goal Td vaccine. Due on due Goal Depression screening. Due on due Goal Influenza vaccine. Due on due Goal Special diet education compl eted Goal Tdap. Due on due Goal Pap/HPV testing. Due on due Goal Td vaccine. Due on due Goal Depression screening. Due on due Goal Influenza vaccine. Due on due Goal Special diet education compl eted Goal Tobacco cessation counseling completed Goal Influenza vaccine. Due on due Goal Depression screening. Due on due Goal Td vaccine. Due on 18 due Goal Pap/HPV testing. Due on due Goal Tdap. Due on due Goal Tobacco cessation counseling completed Goal Special diet education compl eted Goal Depression screening. Due on due Goal Influenza vaccine. Due on due Goal Tdap. Due on due Goal Pap/HPV testing. Due on due Goal Td vaccine. Due on due Goal Special diet education compl eted Goal Pap/HPV testing. Due on due Goal Td vaccine. Due on due Goal Depression screening. Due on due Goal Influenza vaccine. Due on due Goal Tdap. Due on due Goal Special diet education compl eted Goal Tdap. Due on due Goal Influenza vaccine. Due on due Goal Depression screening. Due on due Goal Td vaccine. Due on due Goal Pap/HPV testing. Due on due Goal Special diet education compl eted Goal Tdap. Due on due Goal Pap/HPV testing. Due on due Goal Td vaccine. Due on due Goal Depression screening. Due on due Goal Pap/HPV testing. Due on due Goal Tdap. Due on due Goal Td vaccine. Due on due Goal Depression screening. Due on due Goal Td vaccine. Due on due Goal Tdap. Due on due Goal Depression screening. Due on due Goal Pap/HPV testing. Due on due Goal Pap/HPV testing. Due on due Goal Tdap. Due on due Goal Td vaccine. Due on due Goal Depression screening. Due on due Goal Pap/HPV testing. Due on due Goal Td vaccine. Due on due Goal Tdap. Due on due Goal Depression screening. Due on due Goal Pap/HPV testing. Due on due Goal Depression screening. Due on due Goal Tdap. Due on due Goal Td vaccine. Due on due Goal Td vaccine. Due on due Goal Tdap. Due on due Goal Depression screening. Due on due Goal Pap/HPV testing. Due on due Goal Pap/HPV testing. Due on due Goal Tdap. Due on due Goal Td vaccine. Due on due Goal Depression screening. Due on due Goal Depression screening. Due on due Goal Td vaccine. Due on 16 due Goal Pap/HPV testing. Due on due Goal Tdap. Due on due Goal Depression screening. Due on due Goal Td vaccine. Due on 16 due Goal Tdap. Due on due Goal Pap/HPV testing. Due on due Goal Depression screening. Due on due Goal Td vaccine. Due on 16 due Goal Tdap. Due on due Goal Pap/HPV testing. Due on due Goal Td vaccine. Due on 16 due Goal Pap/HPV testing. Due on due Goal Depression screening. Due on due Goal Tdap. Due on due Goal Pap/HPV testing. Due on due Goal Depression screening. Due on due Goal Td vaccine. Due on 15 due Goal Tdap. Due on due Goal Depression screening. Due on due Goal Pap/HPV testing. Due on due Goal Td vaccine. Due on 15 due Goal Tdap. 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 [facility]. Evaluate and treat ordered Referral Ordered: US EXAM, ABDOM, COMPLETE ordered Referral Ordered: CHEST X-RAY PA/LAT TWO-VIEWS ordered Referral Ordered: Referral: Pulmonary Diseases. Evaluate and treat. ordered Referral Ordered: CT HEAD/BRAIN W/O DYE ordered Referral Ordered: Referral: Plastic Surg. Evaluate and treat. ordered History Of Present Illness Encounter Date Complaint History Of Prese nt Illness pain Pt has low back pain due to DDD. Pt denies any worsening pain ,Pt denies any loss of bladder control. Pt failed NSAID Pt takes norco PRN for pain and doing ok Pt denies any saddle area paresthesia. Pt denies any sciatica or any neuropathy symptoms. breast1 Pt denies any br east issue . Pt needs mammo weight gain1 pt has been gain ing weight again pt had not had phentermine for 4 weeks. Pt is interested in GLP-1 pain Pt has low back pain due to DDD. Pt denies any worsening pain ,Pt denies any loss of bladder control. Pt failed NSAID Pt takes norco PRN for pain and doing ok Pt denies any saddle area paresthesia. Pt denies any sciatica or any neuropathy symptoms. pain Pt has low back pain due to DDD. Pt denies any worsening pain ,Pt denies any loss of bladder control. Pt failed NSAID Pt takes norco PRN for pain and doing ok Pt denies any saddle area paresthesia. Pt denies any sciatica or any neuropathy symptoms. anxiety1 Pt has been gett ing xanax picked up from pharmacy and giving to her mom who has anxiety but is too embarrassed to go to her own doctor. Pt is not taking the xanax weight loss1 Pt has been takjamil ng phentermine and she has been losing weight Pt also has been diet and exercising physical Pt needs annual physical. Pt has chronic low back pain. Pt denies any loss of bowel or bladder control or saddle area paresthesia. Pt is on phentermine but she just started last week. Pt is interested in zepbound .Pt had benign lab recently Pt overall feels fine Pt denies any new complaints pain Pt has low back pain due to DDD. Pt denies any worsening pain ,Pt denies any loss of bladder control. Pt failed NSAID Pt takes norco PRN for pain and doing ok Pt denies any saddle area paresthesia. Pt denies any sciatica or any neuropathy symptoms. weight gain1 Pt has been gain ing weight again Pt has not had phentermine for a while. Pt wants to try phentermine again pain Pt has low back pain due to DDD. Pt denies any worsening pain ,Pt denies any loss of bladder control. Pt failed NSAID Pt takes norco PRN for pain and doing ok Pt denies any saddle area paresthesia. Pt denies any sciatica or any neuropathy symptoms. DM Pt has history o f DM Pt has been off all meds. Her glucose and A1c are normal. Pt has been losing weight with diet and exercise folate Pt has mild low folate and high TG pain Pt has low back pain due to DDD. Pt denies any worsening pain ,Pt denies any loss of bladder control. Pt failed NSAID Pt takes norco PRN for pain and doing ok Pt denies any saddle area paresthesia. Pt denies any sciatica or any neuropathy symptoms. weight gain1 Pt recently went to [place] and she ate a lot of food and she forgot her phentermine and she gained some weight. DM pt has history o f DM Pt has been doing well without any meds. her glucose is less than 100 on her own check back pain1 Pt has low back pain due to DDD. Pt denies any worsening pain ,Pt denies any loss of bladder control. Pt failed NSAID Pt takes norco PRN for pain and doing ok Pt denies any saddle area paresthesia. Pt denies any sciatica or any neuropathy symptoms. weight loss1 Pt restarted phe ntermine and she lost several pounds Pt tolerating phentermine ok wight1 Pt has been off phentermine for one month and she gained several pounds Pt wants to try phentermine again pain Pt has low back pain due to DDD. Pt denies any worsening pain ,Pt denies any loss of bladder control. Pt failed NSAID Pt takes norco PRN for pain and doing ok Pt denies any saddle area paresthesia. Pt denies any sciatica or any neuropathy symptoms. DM Pt has history o f DM and her glucose is well controlled. Pt only able to get trulicity on and off and last time she took trulicity, she vomited weight loss1 Pt has been losi ng weight with diet and exercise and phentermine, Pt took phentermine x 3 months already. Pt tolerated phentermine well except for dry mouth pain Pt has low back pain due to DDD. Pt denies any worsening pain ,Pt denies any loss of bladder control. Pt failed NSAID Pt takes norco PRN for pain and doing ok Pt denies any saddle area paresthesia. Pt denies any sciatica or any neuropathy symptoms. weight loss1 Pt has been taki ng phentermine x 2 months and she tolerating it ok Pt lost some weight Pt denies any side effects pain Pt has low back pain due to DDD. Pt denies any worsening pain ,Pt denies any loss of bladder control. Pt failed NSAID Pt takes norco PRN for pain and doing ok Pt denies any saddle area paresthesia. Pt denies any sciatica or any neuropathy symptoms. pain Pt has low back pain due to DDD. Pt denies any worsening pain ,Pt denies any loss of bladder control. Pt failed NSAID Pt takes norco PRN for pain and doing ok Pt denies any saddle area paresthesia. Pt denies any sciatica or any neuropathy symptoms. weight loss1 Pt started phent ermine last month and she lost close to 10 pounds Pt notices appetite suppression. Pt denies any other side effects GI Pt ate something at gas station this morning and she notices nausea, vomiting, abdominal bloating shortly afterward Pt also feels some chills Pt denies any diarrhea. Pt has slightly poor appetite. Pt is able to tolerate fluid ok weight gain1 Pt has been gain ing weight. Pt is morbidly obese . DM Pt has DM pt is only getting trulicity intermittently due to pharmacy shortage. Her glucose is around 110s with trulicity. Pt denies any neuropathy pain Pt has low back pain due to DDD. Pt denies any worsening pain ,Pt denies any loss of bladder control. Pt failed NSAID Pt takes norco PRN for pain and doing ok Pt denies any saddle area paresthesia. Pt denies any sciatica or any neuropathy symptoms. pain Pt has low back pain due to DDD. Pt denies any worsening pain ,Pt denies any loss of bladder control. Pt failed NSAID Pt takes norco PRN for pain and doing ok Pt denies any saddle area paresthesia. Pt denies any sciatica or any neuropathy symptoms. DM Pt is on trulici ty Pt does not check glucose. Pt has not been able to lose weight with trulicity pain Pt has low back pain due to DDD. Pt denies any worsening pain ,Pt denies any loss of bladder control. Pt failed NSAID Pt takes norco PRN for pain and doing ok Pt denies any saddle area paresthesia. Pt denies any sciatica or any neuropathy symptoms. DM Pt is on trulici ty for history of DM and also to lose weight. Pt has not been losing weight Pt has not been diet and exercising Pt denies any side effects from trulicity pain1 Pt has low back pain due to DDD. Pt denies any worsening pain ,Pt denies any loss of bladder control. Pt failed NSAID Pt takes norco PRN for pain and doing ok Pt denies any saddle area paresthesia. Pt denies any sciatica or any neuropathy symptoms. DM Pt has well cont rolled DM. Pt is on trulicity, which is causing her to lose weight as well. Pt denies any GI side effects pain1 Pt has low back pain due to DDD. Pt denies any worsening pain ,Pt denies any loss of bladder control. Pt failed NSAID Pt takes norco PRN for pain and doing ok Pt denies any saddle area paresthesia. Pt denies any sciatica or any neuropathy symptoms. pain Pt has low back pain due to DDD. Pt denies any worsening pain ,Pt denies any loss of bladder control. Pt failed NSAID Pt takes norco PRN for pain and doing ok Pt denies any saddle area paresthesia. Pt denies any sciatica or any neuropathy symptoms. pain Pt has low back pain due to DDD. Pt denies any worsening pain ,Pt denies any loss of bladder control. Pt failed NSAID Pt takes norco PRN for pain and doing ok Pt denies any saddle area paresthesia. Pt denies any sciatica or any neuropathy symptoms. Pt has been taking 7.5 mg norco due to shortage of 10 mg but is not working as well for her pain Pt called her pharmacy and was told 10 mg is available now. weight gain1 Pt has been gain ing weight again despite taking trulicity Pt has not been exercising recently weight1 Pt has history o f borderline DM with obesity .pt is on trulicity which works ok. Pt has been losing weight Pt denies any Gi side effects Pt needs trulicity refilled . vaginal yeast1 Pt took some abx at urgent care recently for URI and she developed acute vaginal yeast infection since two days ago Pt c/o vaginal itching and white discharge. Pt denies any pelvic pain or vaginal bleeding pain Pt has low back pain due to DDD. Pt denies any worsening pain ,Pt denies any loss of bladder control. Pt failed NSAID Pt takes norco PRN for pain and doing ok Pt denies any saddle area paresthesia. Pt denies any sciatica or any neuropathy symptoms. Pt usually takes norco 10 mg but it is not available due to national shortage. Pt has been taking 7.5 mg norco PRN. HTN Pt has been losi ng weight with trulicity and she is off lisinopril and her bp at home is around 120/70 per patient. mammo Pt denies any br east issue Pt has history of inconclusive screening mammo due to right breast nodule which was benign on subsequent diagnotic mammo. pain Pt has low back pain due to DDD. Pt denies any worsening pain ,Pt denies any loss of bladder control. Pt failed NSAID Pt takes norco PRN for pain and doing ok Pt denies any saddle area paresthesia. Pt denies any sciatica or any neuropathy symptoms. Pt usually takes norco 10 mg but it is not available due to national shortage. Pt has been taking 7.5 mg norco PRN. pain Pt has low back pain due to DDD. Pt denies any worsening pain ,Pt denies any loss of bladder control. Pt failed NSAID Pt takes norco PRN for pain and doing ok Pt denies any saddle area paresthesia. Pt denies any sciatica or any neuropathy symptoms. Pt usually takes norco 10 mg but it is not available due to national shortage. pain Pt has low back pain due to DDD. Pt denies any worsening pain ,Pt denies any loss of bladder control. Pt failed NSAID Pt takes norco PRN for pain and doing ok Pt denies any saddle area paresthesia. Pt denies any sciatica or any neuropathy symptoms HTN Pt has history o f HTN Pt takes lisinopril and her bp is very good. Pt states that she noticed some bilateral orbital swelling recently and she went to urgent care and she was told that she has allergic reaction to lisinopril and she was given steroid and her symptoms resolved. Pt denies any tongue or throat swelling. Pt denies any rash. weight Pt has been losi ng weight with trulicity. Pt has history of DM which is essentially normalized now with normal a1c and glucose. Pt denies any GI side effects weight loss1 Pt has been taki ng trulicity and diet and exercising and she has been losing weight steadily. pt overall feels well. pain Pt has low back pain due to DDD. Pt denies any worsening pain ,Pt denies any loss of bladder control. Pt failed NSAID Pt takes norco PRN for pain and doing ok Pt denies any saddle area paresthesia. Pt denies any sciatica or any neuropathy symptoms pain Pt has low back pain due to DDD. Pt denies any worsening pain ,Pt denies any loss of bladder control. Pt failed NSAID Pt takes norco PRN for pain and doing ok Pt denies any saddle area paresthesia. Pt denies any sciatica or any neuropathy symptoms DM Pt only takes tr ulicity now and she has been off metformin and her glucose and A1c are all normal. pt tolerating trulicity well Pt has been losing weight gradually phos1 Pt has history o f high phos .Pt had repeat lab done and her phos is ok .Her PTH is ok Pt has mildly low D and folate HTN Pt has history o f HTN Pt takes lower dose of lisinopril and her bp is ok and she denies any dizziness . depression1 Her rece ntly left her and she has been feeling depressed with frequent crying spells Pt denies any suicidal or homicidal or self injury intentions. pain Pt has low back pain due to DDD. Pt denies any worsening pain ,Pt denies any loss of bladder control. Pt failed NSAID Pt takes norco PRN for pain and doing ok Pt denies any saddle area paresthesia. Pt denies any sciatica or any neuropathy symptoms DM Pt has DM. Pt meredith judd Pt stopped metformin on her own Pt does not check glucose. Pt has been losing weight with trulicity HTN Pt has HTN, Pt t akes lisinopril 20 mg daily. Her bp is low Pt denies any dizziness pain Pt has low back pain due to DDD. Pt denies any worsening pain ,Pt denies any loss of bladder control. Pt failed NSAID Pt takes norco PRN for pain and doing ok Pt denies any saddle area paresthesia. Pt denies any sciatica or any neuropathy symptoms DM Pt has been eliud judd and she tolerating it ok Pt has lost some weight. Pt fadumo any GI side effects . Pt notices appetite suppression with trulicity. pain Pt has low back pain due to DDD. Pt denies any worsening pain ,Pt denies any loss of bladder control. Pt failed NSAID Pt takes norco PRN for pain and doing ok Pt denies any saddle area paresthesia. Pt denies any sciatica or any neuropathy symptoms DM Pt has been eliud judd and she tolerating it ok Pt has lost some weight. Pt fadumo any GI side effects . Pt notices appetite suppression with trulicity. physical Pt needs annual physical Pt has borderline DM Pt takes metformin and trulicity Pt denies any hypoglycemia Pt has chronic back pain Pt takes norco PRN for pain and doing ok .Pt denies any loss of bowel or bladder control or saddle area paresthesia. Pt has been intentionally losing weight with help of trulicity Pt denies any Gi side effects. pain Pt has low back pain due to DDD. Pt denies any worsening pain ,Pt denies any loss of bladder control. Pt failed NSAID Pt takes norco PRN for pain and doing ok Pt denies any saddle area paresthesia. Pt denies any sciatica or any neuropathy symptoms DM Pt has DM pt juana es metformin and trulicity and she is doing well. Pt also lost 6 pounds on trulicity Pt states that her glucose is around 100. Pt denies any GI side effects. phos1 Pt has high phos . Pt denies any chest pain, weakness. HLP Pt has high Tg P t is working on diet and exercise DM Pt has DM Pt juana es metformin and trulicity Pt started to diet and exercise Pt lost some weight Pt notices some diarrhea with trulicity Pt otherwise notices suppression of appetite and she dd lose weight. pain Pt has low back pain due to DDD. Pt denies any worsening pain ,Pt denies any loss of bladder control. Pt failed NSAID Pt takes norco PRN for pain and doing ok Pt denies any saddle area paresthesia. Pt denies any sciatica or any neuropathy symptoms weight1 Pt has difficult y losing weight. Pt started trulicity last month and she lost some weight pain Pt has low back pain due to DDD. Pt denies any worsening pain ,Pt denies any loss of bladder control. Pt failed NSAID Pt takes norco PRN for pain and doing ok Pt denies any saddle area paresthesia. Pt denies any sciatica or any neuropathy symptoms DM Pt has borderlin e DM pt takes metformin only. Pt has not been checking her glucose. weight Pt is morbidly o bese Pt failed diet and exercise and weight loss. Pt does not want bariatric surgery cough1 Pt c/o persisten t chest congestion, productive cough since last week Pt denies any sob or fever. Pt has greenish nasal drainage as well. Pt tested negative for COVID again yesterday. Pt took Z tash and medrol dose tash and she felt slightly better but her cough persisted. Pt denies any chest pain. Pt wants to try another round of Z tash sick Pt c/o acute ons et of chest congestion, sore throat, productive cough, mild wheezing since this morning. Pt denies any sob or fever. Pt has greenish nasal drainage as well. Pt tested negative for COVID today. breast mass1 Pt has right reji ast mass on screening mammo. Pt denies any breast issue. Pt denies any palpable breast mass, retraction, erythema or nipple discharge. HTN Pt has HTN .Pt t akes lisinopril and her bp is ok DM Pt is pre-diabet ic. Pt takes metformin and doing ok. Pt denies any polyuria polydipsia. pain Pt has low back pain. Pt denies any worsening pain ,Pt denies any loss of bladder control. Pt failed NSAID Pt takes norco PRN for pain and doing ok Pt denies any saddle area paresthesia. Pt denies any sciatica or any neuropathy symptoms anxiety1 Pt has history o f anxiety .Pt weaned herself off klonopin Pt denies any depression or any suicidal or homicidal thought Pt denies any crying spells pain Pt has low back pain. Pt denies any worsening pain ,Pt denies any loss of bladder control. Pt failed NSAID Pt takes norco PRN for pain and doing ok Pt denies any saddle area paresthesia. Pt denies any sciatica or any neuropathy symptoms anxiety1 Pt has chronic a nxiety Pt denies any depression or any suicidal or homicidal thought Pt denies any crying spells. Pt her and she feels much better with less anxiety. Pt rarely takes klonopin anymore. weight gain1 Pt has been gain ing weight Pt is and she is happier and she is working on weight loss with diet and exercise. Pt states that she is interested in bariatric surgery if she does not lose any weight during the next 6 months. metabolic1 Pt has metabolic syndrome. Pt takes metformin. Her glucose and A1c are borderline high. Pt denies an polyuria, polydipsia. Pt has mild proteinuria. TG Pt has mildly hi gh TG. pt has borderline high phos. Pt denies any bone pain pain Pt has low back pain. Pt denies any worsening pain ,Pt denies any loss of bladder control. Pt failed NSAID Pt takes norco PRN for pain and doing ok Pt denies any saddle area paresthesia. Pt denies any sciatica or any neuropathy symptoms anxiety1 Pt has chronic a nxiety. Pt denies any depression or any suicidal thought Pt denies any crying spells. Pt takes klonopin PRn and doing ok. HTN Pt has HTN Pt ta kes lisinopril. Her bp is around 120/60s. Pt denies any chest pain or headache pain Pt has low back pain. Pt denies any worsening pain ,Pt denies any loss of bladder control. Pt failed NSAID Pt takes norco PRN for pain and doing ok anxiety1 Pt has chronic a nxiety. Pt denies any depression or any suicidal thought Pt denies any crying spells. Pt takes klonopin PRn and doing ok. Pt is able to wean down on klonopin PRN and doing ok GERD1 Pt has duodeniti s with ? peptic injury with foveolar metaplasia. pt had negative H pylori Pt denies any GERD Pt is off PPI physical Pt needs annual physical. Pt has borderline DM Pt takes metformin. Pt does not check her glucose. pT denies any polyuria, polydipsia. Pt denies any neuropathy. Pt has HTN. Pt takes lisinopril and her bp is ok at home. Pt has chronic back pain and anxiety Pt takes norco and klonopin pRN and doing ok. Pt denies any suicidal or homicidal thought or depression Pt has mild high TG and proteinuria ,pt is not on feno anymore Pt denies any other complaints anxiety1 Pt has chronic a nxiety Pt denies any depression or any suicidal thought Pt denies any crying spells. Pt takes klonopin PRn and doing ok. Pt wants to wean down on klonopin at this point. Pt failed SSRIs pain Pt has low back pain. Pt denies any worsening pain ,Pt denies any loss of bladder control. Pt failed NSAID Pt takes norco PRN for pain and doing ok GERD1 Pt has mild GERD . Pt had EGD and colonoscopy done which were all normal. Pt was started on omeprazole by GI and GERD resolved glucose1 Pt has insulin r esistance Pt takes metformin and doing ok. Pt denies any hypoglycemia Pt denies any polyuria polydipsia pain Pt has low back pain. Pt denies any worsening pain ,Pt denies any loss of bladder control. Pt failed NSAID Pt takes norco PRN for pain and doing ok anxiety1 Pt has chronic a nxiety Pt denies any depression or any suicidal thought Pt denies any crying spells. Pt takes klonopin PRn and doing ok GERD1 Pt states that G ERD and GERD related sore throat resolved with omeprazole pt denies any abd pain, nausea, vomiting .pt continues to have diarrhea and constipation Pt denies any blood in stool Pt has not heard from GI yet. HTN Pt has HTN. Pt t akes lisinopril and her bp is ok. Pt denies any chest pain or headache bowel issue1 Pt has intermitt ent constipation and diarrhea for several months. Pt states that she has internal and external hemorrhoid both. Pt sometimes notices bright red blood per rectum when she wipes. pt denies any anal pain .Pt also c/o GERd Pt c/o lump around her throat and she feels reflux and she burps a lot and she notices some midsternal chest pain sometimes. Pt started to have GERD for two weeks. pt denies any dysphagia. Pt denies any sore throat Pt denies any drooling. Pt denies any nausea, vomiting, abdominal pain .Pt does have abd bloating. Pt denies any postprandial abd pain. pt denies any exertional chest pain. sick1 Pt c/o sinus con gestion, postnasal drainage and productive coughing with chest congestion with mild sob since this morning Pt denies any fever Pt is taking OTC meds without improvement Pt has COVID testing done twice per week and she just had it tested today which was negative. Pt states that she tends to get pneumonia a lot and she wants a zpak. Pt denies any fever Pt does not think she needs inhaler yet pain Pt has low back pain. Pt denies any worsening pain ,Pt denies any loss of bladder control. Pt failed NSAID Pt takes norco PRN for pain and doing ok anxiety1 Pt has chronic a nxiety Pt denies any depression or any suicidal thought Pt denies any crying spells. Pt takes klonopin PRn and doing ok physical Pt needs annual physical. Pt has borderline DM Pt takes metformin. Pt does not check her glucose. Her a1c is normal. Her fasting glucose was a little high pT denies any polyuria, polydipsia. Pt denies any neuropathy. Pt has HTN. Pt takes lisinopril and her bp is ok at home. Pt has chronic back pain and anxiety Pt takes norco and klonopin pRN and doing ok. Pt denies any suicidal or homicidal thought or depression Pt has mild high TG and proteinuria ,pt is not on feno anymore Pt denies any other complaints abd pain Pt c/o acute ons et of mid and left upper quadrant abdominal pain post food for the past 3 days .Pt feels bloating as well. Pt denies any pain without food. Pt denies any GERD Pt denies any constipation or diarrhea Pt denies any appetite loss. pt denies any early satiety. Pt denies any pelvic pain or vaginal bleeding. Pt states that she has been eating light today and she feels better today pt feels gassy. Pt feels nauseated and dry heaving in the morning for the past 2 days but she is ok today pneumonia1 Pt had pneumonia back in 2017 from er but she never had follow up chest x ray. Pt denies any coughing, sob or fever DM Pt has DM Pt chang s not check her glucose Pt denies any polyuria polydipsia . Pt denies any neuropathy HTN Pt takes lisinop ril and her bp is stable around 120/70. back pain1 Pt has low back pain. Pt denies any worsening pain ,Pt denies any loss of bladder control. Pt failed NSAID Pt takes norco PRN for pain and doing ok anxiety1 Pt has chronic a nxiety Pt denies any depression or any suicidal thought Pt denies any crying spells. Pt takes klonopin PRn and doing ok anxiety1 Patient has chronic disease manager ayala anxiety without depression. Patient denies any suicidal homicidal thoughts. Patient denies any crying spells. Patient takes klonopin PRN and doing ok Pt failed SSRIs. PReDM Pt is prediabeti c Pt takes metformin. Pt denies any polyuria, polydipsia pain Patient has chronic disease manager ayala low back pain. Patient complained of mild sciatica with leg numbness and tingling. Patient denies any loss of bowel bladder control. Patient failed NSAID and tramadol. Patient has 6 out of 10 pain daily. Patient complained of sharp pain. Patient denies any worsening pain. HTN Pt states that s he is no longer dizzy and she is taking lisinopril 20 mg daily again and she just checked her BP now and is 118/72 cough1 Pt c/o productiv e cough with green phlegm x one week. Pt did have sinus congestion last week and went away with mucinex Pt denies any sore throat pt notices some wheezing with coughing Pt denies any sob Pt denies any fever Pt denies any recent travel. 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 anxiety1 Patient has chronic disease manager ayala anxiety without depression. Patient denies any suicidal homicidal thoughts. Patient denies any crying spells. Patient takes klonopin PRN and doing ok Pt failed SSRIs. sick Pt feels sick si nce this AM Pt c/o fatigue, joint pain, productive coughing, sinus congestion, nonbloody diarrhea, and diffuse myalgia Pt has mild headache this morning but not now Pt denies any fever, chill pt denies any sick contact Pt denies any travel to outside [place] recently or any contact with person from [place]. Pt denies any ear pain or sore throat HTN Pt has low Bp Pt feels slightly dizzy since this morning. Pt denies any chest pain or headache. Pt takes lisinopril daily pain Patient has chronic disease manager ayala low back pain. Patient complained of mild sciatica with leg numbness and tingling. Patient denies any loss of bowel bladder control. Patient failed NSAID and tramadol. Patient has 6 out of 10 pain daily. Patient complained of sharp pain. Patient denies any worsening pain. chronic pain1 Patient has chronic disease manager ayala low back pain. Patient complained of mild sciatica with leg numbness and tingling. Patient denies any loss of bowel bladder control. Patient failed NSAID and tramadol. Patient has 6 out of 10 pain daily. Patient complained of sharp pain. Patient denies any worsening pain. anxiety1 Patient has chronic disease manager ayala anxiety without depression. Patient denies any suicidal homicidal thoughts. Patient denies any crying spells. Patient takes klonopin PRN and doing ok Pt failed SSRIs. 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 pt denies any chest pain or headache. ovarian cyst1 Pt has left ovar y removal due to recent cyst. Pt has follow up chato ,Pt denies any pain. Pt did have some post op rash from allergy to tape but resolved chronic pain1 Patient has chronic disease manager ayala low back pain. Patient complained of mild sciatica with leg numbness and tingling. Patient denies any loss of bowel bladder control. Patient failed NSAID and tramadol. Patient has 6 out of 10 pain daily. Patient complained of sharp pain. Patient denies any worsening pain. anxiety1 Patient has chronic disease manager ayala anxiety without depression. Patient denies any suicidal homicidal thoughts. Patient denies any crying spells. Patient takes klonopin PRN and doing ok Pt failed SSRIs. PHysical Pt needs annual physical, Pt has chronic low back pain. Pt takes norco PRN for pain and is stable. Pt denies any loss of bladder control. Pt denies any numbness. pt has chronic anxiety Pt takes klonopin PRN Pt denies any depression or any suicidal thought Pt denies any crying spells. Pt has mild insulin resistance Pt takes metformin and doing ok Pt has HTN. Pt takes lisinopril Pt denies any chest pian or headache. Pt denies any other complaints anxiety1 Patient has chronic disease manager ayala anxiety without depression. Patient denies any suicidal homicidal thoughts. Patient denies any crying spells. Patient takes klonopin PRN and doing ok Pt failed SSRIs. chronic pain1 Patient has chronic disease manager ayala low back pain. Patient complained of mild sciatica with leg numbness and tingling. Patient denies any loss of bowel bladder control. Patient failed NSAID and tramadol. Patient has 6 out of 10 pain daily. Patient complained of sharp pain. Patient denies any worsening pain. folat1 Pt has been eati ng more folic rich food. Her folate level is ok now HLP Patient has hist ory of high triglyceride. Patient stopped feno since last January. Her triglyceride is 199 now, which is slightly higher than last time. Her total cholesterol normal. Patient has been working on low-fat low-carb diet. anxiety1 Patient has chronic disease manager ayala anxiety without depression. Patient denies any suicidal homicidal thoughts. Patient denies any crying spells. Patient takes klonopin PRN and doing okay. Pt failed SSRIs back pain1 Patient has chronic disease manager ayala low back pain. Patient complained of mild sciatica with leg numbness and tingling. Patient denies any loss of bowel bladder control. Patient failed NSAID and tramadol. Patient has 6 out of 10 pain daily. Patient complained of sharp pain. Patient denies any worsening pain. chronic pain Pt has chronic l ow back pain Pt denies any worsening pain Pt denies any loss of bladder control Pt failed NSAID and ultram anxiety1 Pt has chronic a nxiety. pt denies any depression or any suicidal thought. Pt denies any crying spells. Pt takes Klonopin and doing ok HLP Patient has been diet and exercising and losing weight. Her lipid profile is very good. Patient has been trying low-fat low-carb diet. Patient denies any myalgia. anxiety1 patient has chronic disease manager ayala anxiety. Patient denies any depression or any suicidal thoughts. Patient denies any crying spells. Patient takes Klonopin and doing okay. Patient failed SSRI in the past. Back pain 1 Patient has hist ory of chronic low back pain due to DDD. Patient complained of mild sciatica with leg numbness and tingling. Patient denies any loss of bowel bladder control. Patient failed NSAID and tramadol. Patient has 6 out of 10 pain daily. Patient complained of sharp pain. Patient denies any worsening pain. sick Patient complain t of sore throat runny nose earache sinus pain, productive cough with yellow phlegm for 1 week. Patient denies any shortness of breath. Patient denies any fever. Patient denies any recent travel. Patient denies any sick contact. Patient has been taking [id number] medication. PreDM Pt is prediabeti c. Pt is only taking metformin once per day. Pt denies any polyuria, polydipsia. Her glucose and A1c is normal now. Pt has been dieting and exercise and losing weight anxiety1 Pt has chronic a nxiety. Pt denies any depression or any suicidal thought. Pt denies any crying spells. Pt received less klonopin last month due to the risk of taking opioid and benzo together. Pt states that she is mangling her anxiety ok with less Klonopin. Pt denies any suicidal or homicidal thought. weight loss1 Pt has been losi ng weight intentionally and she lost 23 pounds since 3 months ago. Pt cut of all soda and all bread and pasta, etc Pt is also more active physically. Pt denies any GI issue. pt denies any appetite loss. . HTN pt has HTN Pt ta kes lisinopril and her BP is stable Pt is working to try to lose more weight back pain1 Pt has chronic l ow back pain. Pt denies any worsening pain pt denies any loss of bladder control. Pt has dDD Pt is obese. Pt has mild sciatica .pt denies any numbness. Pt denies any loss of bladder control PHysical Pt needs annual physical. pt has DM. Pt takes metformin and her BG is around 100. Pt denies any hypoglycemia. Pt denies any polyuria, polydipsia. Pt has chronic anxiety. Pt denies any depression or any suicidal thought. Pt denies any crying spells. Pt takes klonopin PRN and her anxiety is well controlled. Pt has HLP. Pt takes feno. Pt denies any myalgia,, Pt also has HTN. .Pt takes lisinopril and her BP is stable. Pt is obese. Pt has chronic low back pain .Pt denies any worsening pain. Pt denies any loss of bladder control. Pt has DDD chest pain1 Pt c/o acute ons et of chest pain last week after lifting something and she went to ER and had negative cardiac work up per patient. Pt currently denies any chest pain chronic pain1 Pt has chronic l ow back pain. Pt denies any worsening pain. Pt denies any loss of bladder control. Pt has 7/10 pain. anxiety1 Pt has chronic a nxiety pt denies any depression or any suicidal thought. Pt denies any crying spells. PreDM Pt is prediabeti c. Pt takes metformin. Pt denies any polyuria, polydipsia. fatty liver1 Pt has fatty na er Pt denies any abd pain. pt is obese. pt drinks a lot of soda back pain1 Pt has chronic l ow back pain. Pt denies any worsening pain Pt denies any loss of bowel or bladder control. Pt has 6/10 pain anxiety1 Pt has chronic a nxiety. Pt denies any depression or any sucidial thought Pt denies any crying spells ,Pt take klonpin PRN and doing ok. HTN Pt takes lisinop ril. Pt takes lisinpril. her BP is stable. sick Pt c/o mild fidel r productive coughing, sore throat, sinus congestion for one week Pt deneis any fever, chill recent travel or sick contact obesity1 Pt is obsee Pt h as diffiuclty losing weight with diet and exercise anxiety1 Pt has chronic a nxiety Pt deneis any depression or any suicidal thought Pt denies any crying spells. Pt takes klonpin PNR and doing ok. back pain1 Pt has chronic l ow baxck pain Pt denie any worsening pain. Pt deneis any loss of bladder control back pain1 Pt has chronic l ow back pain due to DDD. Pt denies any worsening pain. Pt denies any loss of bladder control. Pt denies any sciatica or numbness. anxiety1 Pt has chornic n xiety. Pt denies any depression or any suicidal thought. Pt denies any cyring spells HTN Pt has HTN. Pt t akes lisinopril and her BP is stable. Pt denies any chest pain or headache PreDM Pt is prediabeti c. pt takes metformin and her A1c is ok recently. Pt denies any polyuria polydipsia HLP Pt has HLP Pt ta kes feno. Pt denies any myalgia ,Pt is on low fat and low carb diet HTN Pt has HTn. Pt t akes lisinopril and her BP is high totday. Pt denies any chest pain or headache. Pt setates that she has been under a lot of stress lately. . obeisty1 Pt is morbidly o bese. pt drinks a lot of soda. Pt failed diet and exercise on her own. Pt also failed phentermine in the past back pain1 Pt has chornic l wo back apin. pt denies any worsening pain. pt denies roberto carlos loss of bladder control ,Pt has DDd. Pt faield NSAID anxiety1 Pt has chornic a nxiety. Pt dneies any depression or any suicidal thought. Pt denies any cyring spells. Pt takes klopin PRN for anxziety and doing ok. HLP P thas HLP. Pt t aleksandr feno. Pt is on low fat and low carb diet. Pt denies any myalgia, Her lipid profile is ok now back pain1 Pt has chornic l ow back pain. Pt denies any worsening pain <Pt denies any loss of bladder control. Pt has mild sciatica and leg numbness. anxiety1 Pt has chornic a nxiety. .Pt denies any depression or any suicdial thought. Pt denies any crying spells. Pt doing ok with klonopin PRN metabolic Pt takes metform in. Her BG is around 90s. Her A1c is benign. Pt deniesany polyuria, polydipsia. PHysical Pt needs annual physical. Pt has chronic low back pain. Pt has mild sciatica and leg numnbess. Pt has 7/10 pain. Pt denies any worsening pain. Pt denies any loss of bladder control. Pt has chronic anxiety. pt denies any depression or any suicidal thought. Pt takes klonpin PRN and doing ok. Pt also has DM and she takes metformin. Her BG is around 120s or less per patient. Pt also takes lisinopril and feno Pt denies any other complaints metabolic Pt has metabolic syndrome. Pt takes metformin and doing ok. Pt denies any polyuria, polydipsia. Pt denies any GI issue back pain1 Pt has chornic l ow back pain Pt denies any loss of bowel or bladder control. pt has 7/10 pain daily. Pt denies any wrosening pain anxiety1 Pt has chronic a nxiety. .Pt deniess any depression or any suicidal thought. Pt states that she runs out of klonopin frequently. Pt denies any cyring spells HLP Pt has high TG. Pt denies any abd pain or any apetite loss. Pt has been doing low carb diet back pain1 Pt has chronic l ow back pain Pt has 7/10 pain. Pt has mild sciatica at times. Pt denies any loss of bowel or bladder control anxiety1 Pt has chronic a nxiety. Pt denies any depression or any suicdial thought. Pt denies any crying spells HTN Pt has chornic H TN. Pt takes lisinopril and her BP is stalbe. Pt denies any chest pain or headache HLP Pt has HLP .Pt t akes feno. Pt denies any myalgia. Pt is on low fat and low carb diet preDM Pt takes metofmr in and she denies any poluria, polydipsia. Pt is morbidly obese. chronic pain Pt has chronic l ow back pain Pt denie any worsening pain. Pt has 7/10 pain. Pt c/o scitica. Pt c/o leg numbness anxiety1 Pt has chornic a nxiety. Pt denies any depression or any suicidal thought. Pt takes klonpin PRN. Pt sometimes run out. Pt used to take 180 per month HTN1 Pt has HTN. Pt t aakes lisinopirl. Pt denies any chest pain or headache HLP Pt has high TG. Pt takes feno. Pt denies any myalgia. Pt is on low fat and low carb diet PreDM Pt is prediabeti c Pt takes metformin Pt is working on low carb and low sweet diet anxiety1 Pt has chronic a nxiety. pt denies any depression or any sucuidal thought. Pt takes klonopin PRN and doing ok abd pain1 Pt recently went to ER due to abd pain. Pt had CT scan which showed epiplotic appendagitis and she subsequently followed up with surgeon and had benign ultrasound and she denies any further abd pain. Pt denies any nausea, vomiting, diarrhea Pt did eat some bad food before the onset of pain chronic pain Pt has chronic l ow back pain Pt denies any loss of bowel or bladder control. Pt denies any worsening pain HTN Pt has HTN Pt ta kes lisinopril and her BP is stable Pt denies any chest pain or headache HLP Pt takes feno. P t denies any myalgia. Pt is on low fat and low carb diet PHysical Pt needs annual physical. Pt has chronic low back pain. Pt denies any loss of bowel of bladder control. Pt c/o 7/10 low back pain. Pt denies any numbness. Pt has chornic anxiety. Pt denies any depression or any suicdial thought Pt takes klonpin PRN and doing ok. Pt denies any crying spells. Pt also has HLP and metabolic syndrome. Her A1c and lipid profile has been stable. Pt denies any other complaitns HLP Pt has HLP. Pt i s taking feno. Pt denies any myalgia. Pt is trying low fat and low carb diet PreDM Pt takes metform in. Pt is prediabetic. Pt denies any polyuria, polydipsia back pain Additional infor mation: Pt has chronic severe low back pain due to DDD. Pt denies any loss of bowel or bladder control. Pt c/o left sciatica. Pt denies any numnbess. anxiety1 Pt has chronic a nxiety. Pt denies any depression or any suicdial thought. Pt denies any crying spells. Pt denies any feeling of hopelessness. anxiety1 Pt has chronic a nxiety Pt denies any depression or any suicidal thought Pt taeks xana PRN and doing ok. Pt denies any crying spells. pt denies feeling of hopelessness lumbago Pt has chronic L BP Pt denies any loss of bowel or bladder control. Pt denies any worsening pain Pt c/o sciatica left leg without any numbness preDM Pt has preDM. Pt takes metformin 850 mg BID now. Pt denie sany polyuria, polydipsia. obesity Additional infor mation: Pt is morbidlly obese. Pt unable to lose weight. Pt did not try weight watchers. metabolic pt takes metform in. Pt denies any polyuria, polyuria. back pain Additional infor mation: Pt has low back pain. Pt denies any loss of bowel or bladder control. HLP Pt has mildly el evated TG. Pt is on feno, Pt denies any myalgia Instructions Date Instruction Additional Infor mation Special diet education Related t o Body mass index (BMI) 45.0-49.9, adult Increase physical activity Relat ed to Chronic pain syndrome Weight management Related to Chr onic pain syndrome Increase physical activity Relat ed to Chronic pain syndrome Quit smoking Related to Chron ic pain syndrome Weight management Related to Chr onic pain syndrome Special diet education Related t o Body mass index (BMI) 45.0-49.9, adult Quit smoking. Related to Encnt r for general adult medical exam w/o abnormal findings Increase activity. Related to En cntr for general adult medical exam w/o abnormal findings Special diet education Related t o Body mass index (BMI) 45.0-49.9, adult Perform monthly self breast examinations. Related to Encntr for general adult medical exam w/o abnormal findings Special diet education Related t o Body mass index (BMI) 45.0-49.9, adult Increase physical activity Relat ed to Chronic pain syndrome Quit smoking Related to Chron ic pain syndrome Weight management Related to Chr onic pain syndrome Follow a low sodium diet. Relate d to Hyperlipidemia Special diet education Related t o Body mass index (BMI) 45.0-49.9, adult Increase activity. Related to Hy perlipidemia Increase physical activity Relat ed to Chronic pain syndrome Special diet education Related t o Body mass index (BMI) 45.0-49.9, adult Weight management Related to Chr onic pain syndrome Special diet education Related t o Body mass index (BMI) 45.0-49.9, adult Quit smoking Related to Hyper lipidemia Special diet education Related t o Body mass index (BMI) 45.0-49.9, adult Increase physical activity Relat ed to Abnormal weight loss Weight management Related to Abn ormal weight loss Special diet education Related t o Body mass index (BMI) 50-59.9 , adult Increase activity. Related to En cntr for general adult medical exam w/o abnormal findings Perform monthly self breast examinations. Related to Encntr for general adult medical exam w/o abnormal findings Special diet education Related t o Body mass index (BMI) 50-59.9 , adult Increase activity. Related to Hy perlipidemia Follow a low sodium diet. Relate d to Hyperlipidemia Increase activity. Related to Es sential (primary) hypertension Follow a low sodium diet. Relate d to Essential (primary) hypertension Prescribed Activity and Exercise Education Related to Dietary Surveillance and Counseling Prescribed Diet Educ ation/Lifestyle Education Regarding Diet Related to Dietary Surveillance and Counseling Weight management Related to Gen eralized Anxiety Disorder Increase physical activity Relat ed to Generalized Anxiety Disorder Prescribed Diet Educ ation/Lifestyle Education Regarding Diet Related to Dietary Surveillance and Counseling Prescribed Activity and Exercise Education Related to Dietary Surveillance and Counseling Prescribed Activity and Exercise Education Related to Dietary Surveillance and Counseling Prescribed Diet Educ ation/Lifestyle Education Regarding Diet Related to Dietary Surveillance and Counseling Increase activity. Related to Es sential (primary) hypertension Stop smoking. Related to Essen tial (primary) hypertension Follow a low sodium diet. Relate d to Essential (primary) hypertension Prescribed Diet Educ ation/Lifestyle Education Regarding Diet Related to Dietary Surveillance and Counseling Prescribed Activity and Exercise Education Related to Dietary Surveillance and Counseling Prescribed Diet Educ ation/Lifestyle Education Regarding Diet Related to Dietary Surveillance and Counseling Increase physical activity Relat ed to Chronic pain syndrome Quit smoking Related to Chron ic pain syndrome Weight management Related to Chr onic pain syndrome Prescribed Activity and Exercise Education Related to Dietary Surveillance and Counseling Prescribed Activity and Exercise Education Related to Dietary Surveillance and Counseling Prescribed Diet Educ ation/Lifestyle Education Regarding Diet Related to Dietary Surveillance and Counseling Increase activity. Related to Hy perlipidemia Follow a low sodium diet. Relate d to Hyperlipidemia Prescribed Activity and Exercise Education Related to Dietary Surveillance and Counseling Prescribed Diet Educ ation/Lifestyle Education Regarding Diet Related to Dietary Surveillance and Counseling Prescribed Diet Educ ation/Lifestyle Education Regarding Diet Related to Dietary Surveillance and Counseling Prescribed Activity and Exercise Education Related to Dietary Surveillance and Counseling Prescribed Diet Educ ation/Lifestyle Education Regarding Diet Related to Dietary Surveillance and Counseling Prescribed Activity and Exercise Education Related to Dietary Surveillance and Counseling Prescribed Activity and Exercise Education Related to Dietary Surveillance and Counseling Prescribed Diet Educ ation/Lifestyle Education Regarding Diet Related to Dietary Surveillance and Counseling Prescribed Diet Educ ation/Lifestyle Education Regarding Diet Related to Dietary Surveillance and Counseling Prescribed Activity and Exercise Education Related to Dietary Surveillance and Counseling Prescribed Activity and Exercise Education Related to Dietary Surveillance and Counseling Prescribed Diet Educ ation/Lifestyle Education Regarding Diet Related to Dietary Surveillance and Counseling Prescribed Activity and Exercise Education Related to Dietary Surveillance and Counseling Prescribed Diet Educ ation/Lifestyle Education Regarding Diet Related to Dietary Surveillance and Counseling Prescribed Activity and Exercise Education Related to Dietary Surveillance and Counseling Prescribed Diet Educ ation/Lifestyle Education Regarding Diet Related to Dietary Surveillance and Counseling Prescribed Diet Educ ation/Lifestyle Education Regarding Diet Related to Dietary Surveillance and Counseling Prescribed Activity and Exercise Education Related to Dietary Surveillance and Counseling Physical activity counseling Rel ated to Dietary surveillance counseling Decrease caloric intake Related to Dietary surveillance counseling Physical activity counseling Rel ated to Dietary surveillance counseling Decrease caloric intake Related to Dietary surveillance counseling Physical activity counseling Rel ated to Dietary surveillance counseling Decrease caloric intake Related to Dietary surveillance counseling Decrease caloric intake Related to Dietary surveillance counseling Dietary counseling Related to Di etary surveillance counseling Dietary counseling Related to Di etary surveillance counseling Decrease caloric intake Related to Dietary surveillance counseling Dietary counseling Related to Di etary surveillance counseling Decrease caloric intake Related to Dietary surveillance counseling Dietary counseling Related to Di etary surveillance counseling Decrease caloric intake Related to Dietary surveillance counseling Dietary counseling Related to Di etary surveillance counseling Decrease caloric intake Related to Dietary surveillance counseling Dietary counseling Related to Di etary surveillance counseling Decrease caloric intake Related to Dietary surveillance counseling Dietary counseling Related to Di etary surveillance counseling Decrease caloric intake Related to Dietary surveillance counseling Dietary counseling Related to Di etary surveillance counseling Decrease caloric intake Related to Dietary surveillance counseling Dietary counseling Related to Di etary surveillance counseling Decrease caloric intake Related to Dietary surveillance counseling Decrease caloric intake Related to Dietary surveillance counseling Dietary counseling Related to Di etary surveillance counseling Dietary counseling Related to Di etary surveillance counseling Decrease caloric intake Related to Dietary surveillance counseling Dietary counseling Related to Di etary surveillance counseling Decrease caloric intake Related to Dietary surveillance counseling Dietary counseling Related to Di etary surveillance counseling Decrease caloric intake Related to Dietary surveillance counseling Dietary counseling Related to Di etary surveillance counseling Decrease caloric intake Related to Dietary surveillance counseling Dietary counseling Related to Di etary surveillance counseling Decrease caloric intake Related to Dietary surveillance counseling Dietary counseling Related to Di etary surveillance counseling Decrease caloric intake Related to Dietary surveillance counseling Decrease caloric intake Related to Dietary surveillance counseling Dietary counseling Related to Di etary surveillance counseling Dietary counseling Related to Di etary surveillance counseling Decrease caloric intake Related to Dietary surveillance counseling Decrease caloric intake Related to Dietary surveillance counseling Dietary counseling Related to Di etary surveillance counseling Dietary counseling Related to Di etary surveillance counseling Decrease caloric intake Related to Dietary surveillance counseling Dietary counseling Related to Di etary surveillance counseling Decrease caloric intake Related to Dietary surveillance counseling Assessments Type Assessment Date assessment Chronic pain syndrome assessment Abnormal weight gain assessment Encounter for ot screening for malignant neoplasm of breast Mental Status Date Cognitive Assessment Orientation - Harwood ed to time, place, person, situation.
== END 2024-10-04 07:02 | disposition home or self-care (01) ==
LOC: ANHIMG 07:31
PROVIDERS: PCP Emergency Medicine; Visit Provider Emergency Medicine
DX: Z12.31 Encounter for screening mammogram for malignant neoplasm of breast (principal)
CPT/HCPCS: 77063; 77067